=== PATIENT | female | born 1940 | race Caucasian/White ===

== ENCOUNTER → 2017-10-15 10:46 | Outpatient (CLI) | payer MEDICARE, SELFPAY ==
[2017-10-15 11:38] LABS: Anion Gap 11.1 mEq/L (5-15); Blood Urea Nitrogen 14 mg/dL (7-18); Carbon Dioxide 31 mmol/L (21.0-32.0); Chloride 98 mmol/L (98-107); Creatinine,Serum 0.89 mg/dL (0.55-1.02); Estimated Glomerular Filt Rate 61 ml/min (>60); GFR (African American) 74 ML/MIN (>60); Glucose 351 mg/dL (74-106); Potassium 3.1 mmoL/L (3.5-5.1); Sodium 137 mmol/L (136-145)
[2017-10-15 12:04] LABS: Basophils # 0.1 K/mm3 (0-0.2); Basophils % 0.6 % (0.1-2.0); Eosinophils # 0.1 K/mm3 (0.0-0.4); Eosinophils % 1.6 % (0.1-12.0); Hemoglobin 13.3 g/dL (12.2-16.2); Lymphocytes # 1.2 K/mm3 (0.7-4.5); Mean Corpuscular HGB Conc 32.6 g/dL (31.8-35.4); Mean Corpuscular Hemoglobin 30.1 pg (27.0-31.2); Mean Corpuscular Volume 92.3 fl (81-99); Mean Platelet Volume 9.9 fl (7.4-10.4); Monocytes # 0.6 K/mm3 (0.1-1.0); Monocytes % 6.2 % (1.7-9.3); Neutrophils % 78.6 % (37.0-80.0); Platelet Count 137 K/mm3 (142-424); Red Blood Count 4.44 M/mm3 (4.20-5.40); Red Cell Distribution Width 12.9 % (11.5-17.5); White Blood Count 8.9 K/mm3 (4.8-10.8)
== END ==
PROVIDERS: PCP Internal Medicine; Visit Provider Physician Assistant
DX: R53.83 Other fatigue (principal); I11.9 Hypertensive heart disease without heart failure; K92.1 Melena; I45.10 Unspecified right bundle-branch block; I25.10 Atherosclerotic heart disease of native coronary artery without angina pectoris; I48.91 Unspecified atrial fibrillation; E78.4 Other hyperlipidemia; I65.29 Occlusion and stenosis of unspecified carotid artery
CPT/HCPCS: 36415; 80048; 85025

== ENCOUNTER 2017-11-09 21:26 | Emergency (ER) | payer MEDICARE, SELFPAY ==
[2017-11-09 21:50] VITALS: BP 120/89; PULSE 59; RESP 18; TEMP 36.6; O2SAT 96; BMI 32.5
--- NOTE | 2017-11-09 22:02 | XR_ITS ---
XR shoulder LT min 2V Ordering Physician: Cayetano Zheng MD Patient Age: 77 years: Female HISTORY: ITS.REASON: FALL pain left shoulder TECHNIQUE: 3 view left shoulder . AP lateral Y view COMPARISON :01/09/2016 FINDINGS Impacted fracture of the left humeral head on mainly involving the anatomical neck with evident. Superior displacement of the distal fracture fragment There is underlying probable chondrocalcinosis or calcific tendinitis density above the humeral head. Patient may benefit from a CT to exclude any additional small fragments accounting for this vague density about humeral head. AC joint arthropathy with some mild hypertrophy. Stable to prior study The glenoid is intact. These mineralization. Apices left lung clear. IMPRESSION======= 1. Impacted left humeral head fracture . Fracture through the anatomical neck humerus with Mild displacement
--- NOTE | 2017-11-09 22:02 | XR_ITS ---
XR humerus LT COMPARISON: Left shoulder 01/09/2016 HISTORY: Left shoulder pain after a fall TECHNIQUE: 3 views left shoulder FINDINGS: There is a fracture through the neck of the humerus likely the surgical neck with slight varus angulation at the fracture site. There is mild sclerosis along the fracture line suggesting this fracture could be semiacute. There is mild cortical irregularity of the tibial tubercle probably from previous injury. There is mild narrowing of the AC joint with a small bone fragment with smooth borders at the superior aspect of the joint. IMPRESSION: Fracture left humeral neck with mild varus angulation, mild degenerative and/or posttraumatic change of the AC joint. I question whether this injury is acute versus semiacute and suggest clinical correlation for presence or absence of recent injury
--- NOTE | 2017-11-09 22:02 | HMH.EDUPEXT ---
ED Disposition Clinical Impression: Proximal humerus fracture Qualifiers: Encounter type: initial encounter Fracture type: closed Fracture morphology: other fracture Fracture alignment: nondisplaced Laterality: left Qualified Code(s): S42.295A - Other nondisplaced fracture of upper end of left humerus, initial encounter for closed fracture Disposition: Home, Self-Care Condition on Discharge: Good Instructions: DI for Shoulder Fracture Additional Instructions: Please keep your left upper extremity immobilized in a sling, apply ice packs to the left shoulder area, take Tylenol every 4-6 hours as needed for pain, follow-up with Dr. King Davis within the next 2-3 days, in the office. Referrals: King Davis [Referring] - Time of Disposition: 22:44 - Critical Care Critical Care Time: No Attestation: On 11/09/17, the high probability of a clinically significant, sudden or life threatening deterioration of the following system(s) required my full and direct attention, intervention and personal management. The time I documented below is in addition to time spent performing reported procedures but includes the following listed in this critical care notation. Medical Decision Making - Medical Records Medical records reviewed: Yes: I reviewed the patient's medical records. - Basim Inquiry Pt receiving controlled substance: No Vital Signs: 11/09/17 21:50 11/09/17 23:09 Temperature 98 F 98.6 F Temperature Source Oral Oral Pulse Rate 98 H Pulse Rate [Right Radial] 59 L Respiratory Rate 18 16 Blood Pressure 138/65 Blood Pressure [Right Arm] 120/89 Blood Pressure Mean [Right Arm] 99 Blood Pressure Source Automatic Cuff Blood Pressure Position Sitting 02 Sat by Pulse Oximetry 96 Oxygen Delivery Method Room Air Room Air Orders (Tests/Meds): ORDERS Category Date Time Status Humerus XR left [XR humerus LT] Stat Exams 11/09/17 22:02 Taken XR shoulder LT min 2V Stat Exams 11/09/17 22:02 Taken - Radiology Data #1 Image(s): Shoulder (left) Image Reviewed: Yes I reviewed the patient's radiology results, Yes I reviewed the patient's radiology image, Yes I have reviewed radiologist's interpretation left proximal shoulder fracture Upper Extremity HPI - General Chief Complaint: Extremity Injury, Upper Stated Complaint: AO [id number] @1930 fell and injured L arm Time Seen by Provider: 11/09/17 21:30 Mode of Arrival: Family Vehicle Limitations: No Limitations Description of Symptoms (Recalled from ER Triage Doc. by RN): PT STATES SHE FELL OUTSIDE AROUND 1900 ON THE GROUND AND INJURED LEFT SHOULDER. - History of Present Illness MD complaint: injury to: left, shoulder Onset (ago): hour(s) (1) Other Extremity Injury: Left: shoulder Other injuries: none Handedness: right Place: home Severity: moderate Severity scale (1-10): 8 Relieving factors: none Exacerbating factors: movement of extremity Context: fall Associated symptoms: denies other symptoms Treatments prior to arrival: cold therapy - Related Data Home Medications Medication Instructions Recorded Confirmed budesonide-formoterol HFA 80 2 puff INHALATION BID PRN 10/13/17 11/09/17 mcg-4.5 mcg/actuation aerosol inhaler hydrochlorothiazide 25 mg tablet 25 mg PO QAM 10/13/17 11/09/17 losartan 100 mg tablet 100 mg PO DAILY tab 10/13/17 11/09/17 metoprolol tartrate 50 mg tablet 50 mg PO BID 10/13/17 11/09/17 paroxetine 20 mg tablet 20 mg PO QAM 10/13/17 11/09/17 potassium chloride ER 10 mEq 20 meq PO DAILY tab 10/13/17 11/09/17 tablet,extended release(part/cryst) Allergies Allergy/AdvReac Type Severity Reaction Status Date / Time Sulfa (Sulfonamide Allergy Mild Verified 11/09/17 21:57 Antibiotics) [facility] History I have reviewed the patient's past medical history: Yes Medical History: Reports:: Atrial Fibrillation, Cancer, Coronary Artery Disease, Hyperlipidemia, Hypertension Denies:: Diabetes Mellitus Type 1, Di
[2017-11-09 23:09] VITALS: BP 138/65; PULSE 98; RESP 16; TEMP 37; O2SAT 99
== END 2017-11-09 23:13 | disposition home or self-care (01) ==
PROVIDERS: Emergency Provider Emergency Medicine; PCP Internal Medicine
DX: S42.295A Other nondisplaced fracture of upper end of left humerus, initial encounter for closed fracture (principal); I48.2 Chronic atrial fibrillation; I25.10 Atherosclerotic heart disease of native coronary artery without angina pectoris; E78.5 Hyperlipidemia, unspecified; I10 Essential (primary) hypertension; W01.0XXA Fall on same level from slipping, tripping and stumbling without subsequent striking against object, initial encounter; Y92.019 Unspecified place in single-family (private) house as the place of occurrence of the external cause; Z95.5 Presence of coronary angioplasty implant and graft; Z96.652 Presence of left artificial knee joint
CPT/HCPCS: 73030; 73060; 99283

== ENCOUNTER → 2018-01-14 07:44 | Outpatient (CLI) | payer MEDICARE, SELFPAY ==
--- NOTE | 2018-01-14 07:46 | US_ITS ---
US abdomen limited History:Elevated liver enzymes, prior cholecystectomy Ordering Physician:Julian Munoz Patient Age: 77 years Comparison:11/28/2015 Findings: Pancreas:Unremarkable. No obvious mass or abnormal fluid collection. No ductal dilatation Liver:Liver has a somewhat coarse echogenicity with some minimal irregularity of the margin of the liver. This may be seen with developing cirrhosis. Please correlate clinically. There is appropriate directional blood flow within the portal vein does not appear enlarged Right Kidney:Unremarkable. Normal size and echogenicity. No hydronephrosis Gallbladder: Prior cholecystectomy. Common bile duct is somewhat prominent at 11 mm. No intrahepatic biliary ductal dilatation is evident. IMPRESSION: 1. Prior cholecystectomy. Common bile duct is prominent at 11 mm. MRCP may be of further value to exclude a distal obstructing lesion. The biliary ductal prominence may very well be related to physiologic changes from the prior cholecystectomy 2. Coarse echogenic appearance of the liver with some irregularity of the surface of the liver. This may be seen with developing cirrhosis.
== END ==
PROVIDERS: PCP Internal Medicine; Visit Provider Internal Medicine
DX: R94.5 Abnormal results of liver function studies (principal)
CPT/HCPCS: 76705

== ENCOUNTER → 2018-01-22 10:35 | Outpatient (CLI) | payer MEDICARE, SELFPAY ==
--- NOTE | 2018-01-22 10:41 | MR_ITS ---
MR abdomen wo con, MR 3-d myelogram/MRCP HISTORY: ITS.REASON: RUQ PAIN, EVALUATE OBSTRUCTING LESION LIVER/BILE DUCT, dilated biliary tree seen on recent ultrasound ORDERING PHYSICIAN: Julian Munoz PATIENT AGE: 77 years Comparison: None TECHNIQUE: Standard abdomen multiplanar multiecho sequences are performed without contrast. 3-D MRCP images also performed FINDINGS: There is mild splenomegaly at 15 cm. No focal liver lesions evident. The pancreas, adrenal glands, and kidneys have an unremarkable appearance. There is mild prominence of the intra hepatic biliary radicals. Involvement is also dilated. Common bile duct measures up to 12 mm in transverse dimension. The common bile duct however tapers distally. No internal filling defects or strictures are evident. The cystic duct is fairly prominent measuring up to 9 mm in diameter and 2.5 cm in length. No evidence of retained stone within the cystic duct. The pancreatic duct is normal in caliber. IMPRESSION: 1. Dilated common bile duct measuring 12 mm. No filling defects that would indicate a common duct stone. No strictures. Dilated common bile duct may be physiologic response to the previous cholecystectomy 2. Prominent cystic duct remnant. 3. Unremarkable pancreatic duct 4. Splenomegaly
== END ==
PROVIDERS: PCP Internal Medicine; Visit Provider Internal Medicine
DX: R10.11 Right upper quadrant pain (principal)
CPT/HCPCS: 74181; 76376

== ENCOUNTER 2018-01-27 15:00 | Outpatient (RCR) | payer MEDICARE, SELFPAY | END 2018-01-27 15:01 | disposition home or self-care (01) | LOC: PT 15:00 | PROVIDERS: PCP Internal Medicine; Referring Provider Physician Assistant Surgical | DX: S42.202A Unspecified fracture of upper end of left humerus, initial encounter for closed fracture (principal) | CPT/HCPCS: 97010; 97014; 97110; 97140; 97163; G0283 ==

== ENCOUNTER → 2018-04-20 15:37 | Outpatient (POV) | payer MEDICARE, SELFPAY | PROVIDERS: Visit Provider Nurse Practitioner Acute Care | DX: Z00.00 Encounter for general adult medical examination without abnormal findings (principal) ==

== ENCOUNTER → 2018-09-08 11:24 | Outpatient (CLI) | payer MEDICARE, SELFPAY ==
--- NOTE | 2018-09-08 11:32 | XR_ITS ---
XR knee RT 4V HISTORY: ITS.REASON: RT KNEE DJD,PAIN, STIFFNESS ORDERING PHYSICIAN: Julian Munoz PATIENT AGE: 78 years COMPARISON: 07/03/2010 FINDINGS: Weight bearing views are obtained. There is mild tricompartmental osteoarthritis most pronounced at the medial compartment with osteophytes and chondrocalcinosis of the medial and lateral menisci. No fracture or dislocation. No lytic or blastic change. IMPRESSION: Osteoarthritis which has progressed compared to 07/03/2010
== END ==
PROVIDERS: PCP Internal Medicine; Visit Provider Internal Medicine
DX: M25.561 Pain in right knee (principal); M25.661 Stiffness of right knee, not elsewhere classified
CPT/HCPCS: 73564

== ENCOUNTER → 2018-12-08 10:26 | Outpatient (POV) | payer MEDICARE, SELFPAY | PROVIDERS: Visit Provider Dermatology | DX: Z00.00 Encounter for general adult medical examination without abnormal findings (principal) ==

== ENCOUNTER → 2019-05-10 08:27 | Outpatient (CLI) | payer MEDICARE, SELFPAY ==
--- NOTE | 2019-05-10 08:29 | US_ITS ---
PROCEDURE: US ABDOMEN COMPLETE CLINICAL INDICATION: ASCITES, CIRRHOSIS COMPARISON: [facility] US abdomen limited from 01/14/2018 FINDINGS: PANCREAS: Unremarkable. No obvious mass or abnormal fluid collection. No ductal dilatation LIVER: Liver is of moderate increased echogenicity with lobular contour consistent with cirrhosis. There is no definite ultrasound evidence of a focal liver lesion. Common bile duct is 1.3 centimeters however there is no intrahepatic biliary dilatation. RIGHT KIDNEY: Unremarkable. Normal size and echogenicity. No hydronephrosis LEFT KIDNEY: Unremarkable. Normal size and echogenicity. No hydronephrosis GALLBLADDER: Removed AORTA: There is no dilatation. There are some echogenic wall plaques. Visualized portions of the IVC appear normal. SPLEEN: Splenic length is 15 centimeters. ASCITES: Moderate IMPRESSION: Evidence of moderate ascites. Hepatic cirrhosis. Prominent common bile duct likely related to cholecystectomy and patient age. Splenomegaly. Dictated by: Wagner Bo 05/10/2019 10:56 Electronically signed by Wagner Bo in [place] 05/10/2019 10:56
== END ==
PROVIDERS: PCP Internal Medicine; Visit Provider Internal Medicine Gastroenterology
DX: R18.8 Other ascites (principal); K74.60 Unspecified cirrhosis of liver
CPT/HCPCS: 76700

== ENCOUNTER 2019-05-19 19:40 | Observation (INO) ==
--- NOTE | 2019-05-19 20:24 | Emergency Department Note ---
ED Disposition Clinical Impression: Portal hypertension, Renal insufficiency, Falls frequently, Weakness Cirrhosis Qualifiers: Hepatic cirrhosis type: other cirrhosis Qualified Code(s): K74.69 - Other cirrhosis of liver Atrial fibrillation Qualifiers: Atrial fibrillation type: unspecified chronic Qualified Code(s): I48.20 - Chronic atrial fibrillation, unspecified Ascites Qualifiers: Ascites type: other type Qualified Code(s): R18.8 - Other ascites Disposition: Admitted as Observation Condition on Discharge: Fair - Critical Care Critical Care Time: No Attestation: On 05/19/19, the high probability of a clinically significant, sudden or life threatening deterioration of the following system(s) required my full and direct attention, intervention and personal management. The time I documented below is in addition to time spent performing reported procedures but includes the following listed in this critical care notation. Medical Decision Making - Medical Records Medical records reviewed: Yes: I reviewed the patient's medical records. - Basim Inquiry Pt receiving controlled substance: No Vital Signs: 05/19/19 20:01 Temperature 98.0 F Temperature Source Oral Pulse Rate [Left Radial] 87 Respiratory Rate 17 Blood Pressure [Right Arm] 132/65 Blood Pressure Mean [Right Arm] 87 Blood Pressure Source [Right Arm] Automatic Cuff Blood Pressure Position [Right Arm] Supine 02 Sat by Pulse Oximetry 100 Oxygen Delivery Method Room Air - Lab Data Lab results reviewed: Yes: I reviewed the patient's lab results. Lab Results 05/19/19 20:05: WBC 8.4, RBC 4.90, Hgb 13.4, Hct 44.4, MCV 90.5, MCH 27.4, MCHC 30.3 L, RDW 17.9 H, Plt Count 312, MPV 8.2, Neut % (Auto) 81.8 H, Lymph % (Auto) 10.8, [place] % (Auto) 6.5, Eos % (Auto) 0.4, Baso % (Auto) 0.5, Neut # (Auto) 6.9, Lymph # (Auto) 0.9, [place] # (Auto) 0.6, Eos # (Auto) 0.0, Baso # (Auto) 0.0, ESR 42 H 05/19/19 20:05: Sodium 132 L, Potassium 3.3 L, Chloride 89 L, Carbon Dioxide 27, Anion Gap 19.3 H, BUN 15, Creatinine 1.36 H, Estimated Creat Clear 37, Estimated GFR 37 L, Est GFR ( Amer) 45 L, Glucose 154 H, Calcium 9.2, Troponin I < 0.02, C-Reactive Protein 5.1 H 05/19/19 20:05: Total Bilirubin 2.0 H, Direct Bilirubin 0.8 H, Indirect Bilirubin 1.2 H, AST 31, ALT 14, Alkaline Phosphatase 175 H, Total Protein 8.5 H , Albumin 3.6 05/19/19 20:05: PT 12.1 H, INR 1.17 H 05/19/19 21:40: Ammonia < 10 L Result diagrams: 05/19/19 20:05 05/19/19 20:05 Orders (Tests/Meds): ORDERS Category Date Time Status CT abdomen pelvis wo con Stat Cat Scan 05/19/19 20:[address] head/brain wo con Stat Cat Scan 05/19/19 20:20 Taken Knee XR left 3 views [XR knee LT 3V] Stat Exams 05/19/19 20:25 Taken XR chest AP Stat Exams 05/19/19 20:20 Taken XR pelvis 1-2V Routine Exams 05/19/19 Taken Urinalysis and Microscopic Stat Lab 05/19/19 22:50 Received - Radiology Data #1 Image(s): Chest, Pelvis, Knee Image Reviewed: Yes I reviewed the patient's radiology image Preliminary Findings: No Fracture Seen - CT Data CT Scan: Head, Abdomen, Pelvis Time Received: 21:[address] Reviewed: Yes: I have viewed the radiologist's interpretation Preliminary Findings: Abnormal (see reports) - ECG Data Tracing #1 Arrhythmias present: afib Ischemic changes: non-specific ST-T wave changes Weakness HPI - General Stated complaint: Weight loss/No Appetite/Fall AO 05/19 17:00/ Time Seen by Provider: 05/19/19 20:15 Mode of Arrival: Wheelchair Source of Information: Patient, Relative, Medical Record Limitations: Physical Limitations Description of Symptoms (Recalled from ER Triage Doc. by RN): pt stated she had a colonoscopy over the summer that resulted in "fluid build up on her stomach." pt stated since her procedure she has been weak, lethargic, lose of appetite with about a 30lb weight loss. pt stated she had increased weakness today and has started to vomit when she eats. pt fell twice today. both falls were whitnessed. pt fell back on her bottom while trying to get into the vehicle and fell into the door when trying to walk into the house. pt stated she hit her head on the door but denies LOC. - History of Present Illness HPI Narrative: pt with hx of cirrhosis and ascites and has seen gi- she has over the last few days more weakness and dec po intake with n/v - no fever and reported a couple of falls sec to weakness over the last few days MD Complaint: generalized weakness Onset (ago): day(s) Duration: constant Severity: moderate Associated symptoms: denies other symptoms - Related Data Home Medications Medication Instructions Recorded Confirmed budesonide-formoterol HFA 80 2 puff INHALATION BID PRN 10/13/17 11/09/17 mcg-4.5 mcg/actuation aerosol inhaler hydrochlorothiazide 25 mg tablet 25 mg PO QAM 10/13/17 11/09/17 losartan 100 mg tablet 100 mg PO DAILY tab 10/13/17 11/09/17 paroxetine 20 mg tablet 20 mg PO QAM 10/13/17 11/09/17 potassium chloride ER 10 mEq 20 meq PO DAILY tab 10/13/17 11/09/17 tablet,extended release(part/cryst) cholecalciferol (vitamin D3) 1,000 1,000 unit PO DAILY cap 02/18/18 unit capsule multivitamin tablet 1 tab PO QAM 02/18/18 vitamin B complex tablet 1 tab PO DAILY tab 02/18/18 Previous Rx's Medication Instructions Recorded sotalol 80 mg tablet 80 mg PO Q12H #60 tab 02/18/18 Allergies Allergy/AdvReac Type Severity Reaction Status Date / Time Sulfa (Sulfonamide Allergy Mild Verified 11/09/17 21:57 Antibiotics) [facility] History - Hepatitis A Screen Drug use history?: No High risk sexual behaviors?: No History of sexually transmitted infection?: No Currently employed?: No Childcare worker?: No Do you have indoor plumbing?: Yes Do you have electricity?: Yes Attestation statement:: This patient has been screened for Hepatitis A risk factors. I have reviewed the patient's past medical history: Yes Medical History: Reports:: Atrial Fibrillation, Cancer, Coronary Artery Disease, Hyperlipidemia, Hypertension Denies:: Diabetes Mellitus Type 1, Diabetes Mellitus Type 2, MRSA Laterality Cases: Left: Lumpectomy, Mastectomy Other Surgeries: Yes: CABG, Cardiac Surgery Amputation: No Fractures: Yes (RIGHT FEMUR WITH PLATE) - Social History Smoking Status: Never smoker Alcohol Intake: never Alcohol Intake Frequency:: other Substance Use Type: denies use Occupational Status: retired Family Hx:: Coronary Artery Disease, Heart Attack ROS Obtained: Yes All systems reviewed & no additional complaints - Constitutional Constitutional: Denies fever(s) - Eyes Eyes: Denies change in vision - ENT Ears, Nose, Mouth, and Throat: Denies sore throat - Cardiovascular Cardiovascular: Denies chest pain - Respiratory Respiratory: No cough - Gastrointestinal Gastrointestingal: Reports: as per HPI, abdominal pain, nausea, vomiting - Genitourinary Female Genitourinary: Denies hematuria - Musculoskeletal Musculoskeletal: Denies joint pain, Denies joint swelling - Integumentary/Breasts Skin/Breast: Denies rash - Neurologic Neurologic: Reports as per HPI, Denies abnormal speech, Denies dizziness, Denies focal weakness, Reports frequent falls, Denies seizure-like activity Physical Exam - General General appearance: alert, in no apparent distress - Head Head exam: normocephalic - Eye Eye exam: Present: PERRL, EOMI. Absent: scleral icterus, nystagmus - ENT ENT exam: Present: mucous membranes dry - Neck Neck exam: Present: trachea midline - Respiratory Respiratory exam: Present: normal lung sounds bilaterally. Absent: respiratory distress - Cardiovascular Cardiovascular exam: Present: irregular rhythm, systolic murmur, +S4 - Abdominal Exam Abdominal exam: Present: soft, tenderness, diminished bowel sounds, other (distended ) Abdominal tenderness: Present: RUQ, moderate - Extremities Exam Extremities exam: Present: full ROM. Absent: calf tenderness - Neurological Exam Neurological exam: Present: alert, oriented X3, CN II-XII intact, other. Absent: motor sensory deficit - Psychiatric Psychiatric exam: Present: normal affect - Skin Skin exam: Absent: rash
[2019-05-19 20:34] LABS: Basophils % 0.5 % (0.1-2.0); Eosinophils % 0.4 % (0.1-12.0); Hematocrit 44.4 % (37.0-47.0); Hemoglobin 13.4 g/dL (12.2-16.2); Lymphocytes # 0.9 K/mm3 (0.7-4.5); Lymphocytes % 10.8 % (10-50); Mean Corpuscular HGB Conc 30.3 g/dL (31.8-35.4); Mean Corpuscular Volume 90.5 fl (81-99); Mean Platelet Volume 8.2 fl (7.4-10.4); Monocytes # 0.6 K/mm3 (0.1-1.0); Monocytes % 6.5 % (1.7-9.3); Neutrophils # 6.9 K/mm3 (1.8-7.8); Neutrophils % 81.8 % (37.0-80.0); Platelet Count 312 K/mm3 (142-424); Red Cell Distribution Width 17.9 % (11.5-17.5); White Blood Count 8.4 K/mm3 (4.8-10.8)
[2019-05-19 20:35] LABS: INR 1.17 (0.9-1.1); Prothrombin Time 12.1 seconds (9.4-11.8)
[2019-05-19 20:43] LABS: Anion Gap 19.3 mEq/L (5-15); Blood Urea Nitrogen 15 mg/dL (7-18); C-Reactive Protein 5.1 mg/dL (0.0-0.9); Calcium 9.2 mg/dL (8.5-10.1); Carbon Dioxide 27 mmol/L (21.0-32.0); Chloride 89 mmol/L (98-107); Glucose 154 mg/dL (74-106); Sodium 132 mmol/L (136-145)
[2019-05-19 20:50] LABS: Albumin Level 3.6 gm/dL (3.4-5.0); Bilirubin,Direct 0.8 mg/dL (0.0-0.2); Bilirubin,Indirect 1.2 mg/dL (0.0-0.9); Total Protein,Serum 8.5 gm/dL (6.4-8.2)
[2019-05-19 21:19] LABS: Erythrocyte Sedimentation Rate 42 mm/hr (0-30)
[2019-05-19 22:55] LABS: Microscopic, Urine URINE MICROSCOPIC (MICROSCOPIC)
[2019-05-19 22:58] LABS: Appearance,Urine CLEAR (Clear); Blood, Urine 2+ (Negative); Color,Urine YELLOW (Yellow); Glucose,Urine (UA) Negative (Negative); Ketones,Urine Negative (Negative); Leukocyte Esterase,Urine Negative (Negative); PH,Urine 5.5 (5.0-8.5); Protein,Urine TRACE (Negative); Specific Gravity, Urine >= 1.030 (1.005-1.030)
[2019-05-19 23:13] LABS: Bilirubin,Urine Negative (Negative)
[2019-05-19 23:14] LABS: Bacteria,Urine Trace /lpf
[2019-05-20 05:56] LABS: Basophils % 0.3 % (0.1-2.0); Eosinophils % 0.6 % (0.1-12.0); Lymphocytes # 0.9 K/mm3 (0.7-4.5); Mean Corpuscular HGB Conc 30.8 g/dL (31.8-35.4); Mean Corpuscular Volume 89.3 fl (81-99); Mean Platelet Volume 8.7 fl (7.4-10.4); Monocytes # 0.6 K/mm3 (0.1-1.0); Monocytes % 9.1 % (1.7-9.3); Neutrophils # 4.5 K/mm3 (1.8-7.8); Neutrophils % 74.9 % (37.0-80.0); Platelet Count 209 K/mm3 (142-424); Red Cell Distribution Width 17.9 % (11.5-17.5)
[2019-05-20 06:01] LABS: Calcium 8.3 mg/dL (8.5-10.1)
[2019-05-20 06:03] LABS: Hemoglobin 10.1 g/dL (12.2-16.2)
--- NOTE | 2019-05-20 08:15 | Pharmacy Consult Notes ---
[facility] Pharmacy VTE Monitoring - Patient Demographics Admission date: 05/20/19 Report Date: 05/20/19 Time: 08:15 Allergies/Adverse Reactions: Patient Allergies Sulfa (Sulfonamide Antibiotics) Allergy (Mild, Verified 11/09/17 21:57) Height: 1.63 m Weight: 66.877 kg Patient Problems: Current Active Problems Cirrhosis (Acute) Portal hypertension (Acute) Ascites (Acute) Renal insufficiency (Acute) Falls frequently (Acute) Weakness (Acute) Atrial fibrillation (Acute) - VTE Risk Labs: VTE Related Lab Results Hgb 10.1 g/dL (12.2-16.2) L D 05/20/19 05:40 Hct 33.0 % (37.0-47.0) L 05/20/19 05:40 Plt Count 209 K/mm3 (142-424) D 05/20/19 05:40 PT 12.1 seconds (9.4-11.8) H 05/19/19 20:05 INR 1.17 (0.9-1.1) H 05/19/19 20:05 BUN 14 mg/dL (7-18) 05/20/19 05:40 Creatinine 1.08 mg/dL (0.55-1.02) H D 05/20/19 05:40 Estimated Creat Clear 44 mL/min (50-200) 05/20/19 05:40 Was VTE Risk Assessment Performed: Yes VTE Risk Level: Moderate Risk Clinical Trial Participant: No - Prophylaxis VTE Prophylaxis Ordered?: Yes Types of VTE Prophylaxis: TEDS Knee High
--- NOTE | 2019-05-20 10:23 | History & Physical Report ---
*Admission Date: 05/20/19 *Chief complaint: abdominal distension, falls *History of present illness: Ms. Blue is an 78-year-old female who presented to the ER yesterday due to worsening fatigue and abdominal distention. She states she developed abdominal distention proximally 3 months ago after colonoscopy. Has a known history of cirrhosis but has never had previous ascites or abdominal paracenteses. Denies previous distention prior to colonoscopy interestingly. Has been having poor p.o. intake and feeling more fatigued. Denies any fevers, nausea vomiting, diarrhea. Is not on any goal-directed therapy for her cirrhosis or liver failure. Meld on admission is a 15 [facility] History Medical History: Reports:: Atrial Fibrillation, Cancer (breast), Coronary Artery Disease, Hyperlipidemia, Hypertension Denies:: Diabetes Mellitus Type 1, Diabetes Mellitus Type 2, MRSA *Have you ever received a pneumonia vaccine?: No *Have you received a flu vaccine this season?: No Other Medical History: Reports: Anemia, Arthritis, Radiation Therapy Laterality Cases: Left: Lumpectomy, Mastectomy Other Surgeries: Yes: CABG, Cancer Surgery (mastectomy), Cardiac Catheterization, Cardiac Surgery, Cholecystectomy, Colonoscopy Amputation: No Fractures: Yes (RIGHT FEMUR WITH PLATE) - *Social History Educational Level: Completed High School Smoking Status: Never smoker Alcohol Intake: never Alcohol Intake Frequency:: other Substance Use Type: denies use *Occupational Status:: retired *Travel in the last 8 weeks: None Family Hx:: Asthma, Cancer, Coronary Artery Disease, Heart Attack, Hypertension, Kidney Disease Review of Systems - Review of Systems Review of systems:: pertinent systems reviewed and negative unless documented below - *Neurologic Reports frequent falls, Denies abnormal speech, Denies dizziness, Denies localized weakness, Denies seizure-like activity Meds Home Medications Medication Instructions Recorded Confirmed Type paroxetine 20 mg tablet 20 mg PO QAM 10/13/17 05/20/19 History cholecalciferol (vitamin D3) 1,000 1,000 unit PO DAILY cap 02/18/18 05/20/19 History unit capsule multivitamin tablet 1 tab PO QAM 02/18/18 05/20/19 History vitamin B complex tablet 1 tab PO DAILY tab 02/18/18 05/20/19 History Atenolol [Atenolol 50mg Tab] 50 mg PO DAILY 05/20/19 05/20/19 History Budesonide/Formoterol Fumarate 1 puffs INHALATION BID 05/20/19 05/20/19 History [Symbicort 160-4.5 Mcg Inhaler] Colesevelam HCl [Welchol] 625 mg PO BID 05/20/19 05/20/19 History Furosemide [Furosemide 20mg Tab] 20 mg PO DAILY 05/20/19 05/20/19 History Levothyroxine Sodium 100 mg PO DAILY 05/20/19 05/20/19 History [Levothyroxine 100mcg (0.1MG) Tab] Spironolactone 100 mg PO DAILY 05/20/19 05/20/19 History dilTIAZem HCl [Cartia Xt] 300 mg PO DAILY 05/20/19 05/20/19 History Allergies Allergy/AdvReac Type Severity Reaction Status Date / Time Sulfa (Sulfonamide Allergy Mild Verified 11/09/17 21:57 Antibiotics) Exam Vital signs and Labs for Last 24 Hours: Temp Pulse Resp BP Pulse Ox 97.8 F 88 18 137/64 95 05/20/19 08:00 05/20/19 08:00 05/20/19 08:00 05/20/19 08:00 05/20/19 08:00 Laboratory Results - last 24 hr 05/19/19 20:05: WBC 8.4, RBC 4.90, Hgb 13.4, Hct 44.4, MCV 90.5, MCH 27.4, MCHC 30.3 L, RDW 17.9 H, Plt Count 312, MPV 8.2, Neut % (Auto) 81.8 H, Lymph % (Auto) 10.8, Owen % (Auto) 6.5, Eos % (Auto) 0.4, Baso % (Auto) 0.5, Neut # (Auto) 6.9, Lymph # (Auto) 0.9, Owen # (Auto) 0.6, Eos # (Auto) 0.0, Baso # (Auto) 0.0, ESR 42 H 05/19/19 20:05: Sodium 132 L, Potassium 3.3 L, Chloride 89 L, Carbon Dioxide 27, Anion Gap 19.3 H, BUN 15, Creatinine 1.36 H, Estimated Creat Clear 37, Estimated GFR 37 L, Est GFR ( Amer) 45 L, Glucose 154 H, Calcium 9.2, Troponin I < 0.02, C-Reactive Protein 5.1 H 05/19/19 20:05: Total Bilirubin 2.0 H, Direct Bilirubin 0.8 H, Indirect Bilirubin 1.2 H, AST 31, ALT 14, Alkaline Phosphatase 175 H, Total Protein 8.5 H , Albumin 3.6 05/19/19 20:05: PT 12.1 H, INR 1.17 H 05/19/19 21:40: Ammonia < 10 L 05/19/19 22:50: Urine Color Yellow, Urine Appearance Clear, Urine pH 5.5, Ur Specific [place] >= 1.030, Urine Protein Trace, Urine Glucose (UA) Negative, Urine Ketones Negative, Urine Blood 2+, Urine Nitrate Negative, Urine Bilirubin Negative, Urine Urobilinogen 1.0, Ur Leukocyte Esterase Negative, Urine WBC 3-5, Ur Squamous Epith Cells 3-5, Urine Bacteria Trace 05/20/19 02:00: Troponin I < 0.02 05/20/19 05:40: Troponin I < 0.02 05/20/19 05:40: WBC 6.0 D, RBC 3.70 L, Hgb 10.1 L D, Hct 33.0 L, MCV 89.3, MCH 27.5, MCHC 30.8 L, RDW 17.9 H, Plt Count 209 D, MPV 8.7, Neut % (Auto) 74.9, Lymph % (Auto) 15.0, Owen % (Auto) 9.1, Eos % (Auto) 0.6, Baso % (Auto) 0.3, Neut # (Auto) 4.5, Lymph # (Auto) 0.9, Owen # (Auto) 0.6, Eos # (Auto) 0.0, Baso # (Auto) 0.0 05/20/19 05:40: Sodium 134 L, Potassium 3.0 L, Chloride 96 L, Carbon Dioxide 29, Anion Gap 12.0, BUN 14, Creatinine 1.08 H D, Estimated Creat Clear 44, Estimated GFR 49 L, Est GFR ( Amer) 59 D, Glucose 96 D, Calcium 8.3 L I & O for Last 24 hours: Intake & Output 05/17/19 05/18/19 05/19/19 05/20/19 23:59 23:59 23:59 23:59 Intake Total 718 / 718 Balance / 718 Weight 71.214 kg 66.877 kg - *Routine HEENT Exam Head: Present: normocephalic Eye: Present: EOMI, PERRL ENT: Present: mucous membranes moist - *Routine Neck Exam Present: supple. Absent: lymphadenopathy - Routine Chest/Breast/Axilla Exam Comments: Right-sided post mastectomy changes - *Routine Respiratory Exam Present: CTA bilaterally - *Routine Cardiovascular Exam Present: RRR - *Routine Abdominal Exam Present: soft, normoactive bowel sounds, distended. Absent: tenderness Comments: ascites, dull to percussion - *Routine Extremities Exam Absent: cyanosis, clubbing, edema - *Routine Skin Exam Present: warm. Absent: rash - *Routine Neurological Exam Present: alert, oriented X3 Assessment and Plan (1) Ascites Current visit: Yes Status: Acute Qualifiers: Ascites type: other type Qualified Code(s): R18.8 - Other ascites Category: Medical Code(s): R18.8 - Other ascites Secondary to cirrhosis. Will perform large-volume paracentesis with albumin administered after larger than 5 L. Fluid studies on ascites fluid. We will also pursue right upper quadrant ultrasound of liver to assess for possible portal vein thrombosis as underlying cause for portal hypertension and worsening ascites over the past 3 months. If concerning for peritonitis, will initiate broad-spectrum antibiotics upon that time after obtaining fluid and cell counts (2) Atrial fibrillation Current visit: Yes Status: Chronic Qualifiers: Atrial fibrillation type: unspecified chronic Qualified Code(s): I48.20 - Chronic atrial fibrillation, unspecified; I48.2 - Chronic atrial fibrillation Category: Medical Code(s): I48.91 - Unspecified atrial fibrillation Continue diltiazem. (3) Cirrhosis Current visit: Yes Status: Chronic Qualifiers: Hepatic cirrhosis type: other cirrhosis Qualified Code(s): K74.69 - Other cirrhosis of liver Category: Medical Code(s): K74.60 - Unspecified cirrhosis of liver Meld of 15. Will benefit from referral to economics lecturer at time of discharge. (4) Portal hypertension Current visit: Yes Status: Acute Category: Medical Code(s): K76.6 - Portal hypertension Continue atenolol, initiate propranolol. Continue Lasix and spironolactone. (5) Renal insufficiency Current visit: Yes Status: Acute Category: Medical Code(s): N28.9 - Disorder of kidney and ureter, unspecified Monitor for improvement with paracentesis. (6) Fatigue Current visit: No Status: Chronic Qualifiers: Fatigue type: other Qualified Code(s): R53.83 - Other fatigue Category: Medical Code(s): R53.83 - Other fatigue SPECT secondary to chronic disease, cirrhosis, A. fib. Monitor for improvement with large volume paracentesis. Additionally will assess improvement with initiation of diet as patient has had poor p.o. intake for some time now due to abdominal distention. - Assessment and plan all Dx Assessment and Plan for all problems:: 78-year-old female with history of breast cancer, cirrhosis, new onset of ascites. Work-up portal hypertension and optimize cirrhosis management and tr eatment of ascites. Paracentesis performed by radiology. Fluid studies obtained. Holding on antibiotics at this time as there is no overt sign of infection. Further management pending lab results. Will need gastroenterology/hepatology follow-up at time of discharge. Continues to require inpatient management. Will monitor for kidney function improvement as well as improvement in p.o. intake. If does well over the next 24 hours, plan to discharge home with further management as outpatient.
[2019-05-20 10:36] LABS: Albumin Level 2.4 gm/dL (3.4-5.0); Albumin/Globulin Ratio 0.7 (1.1-1.8); Bilirubin,Total 1.2 mg/dL (0.2-1.0); Calcium 8.3 mg/dL (8.5-10.1); Globulin 3.5 gm/dl (1.3-3.2); Total Protein,Serum 5.9 gm/dL (6.4-8.2)
[2019-05-20 14:10] LABS: Appearance,Body Fld. Normal; Mononuclear WBCs,Body Fluid 88 %; Polynuclear WBC,Body Fluid 12 %; RBC,Body Fluid < 10 cells/uL (< 10 X 10^3); TNC,Body Fluid 291 cells/uL (< 1000)
--- NOTE | 2019-05-20 17:58 | Discharge Summary ---
General - General Admission date:: 05/20/19 Discharge date: 05/21/19 HPI HPI: Ms. Blue is an 78-year-old female who presented to the ER yesterday due to worsening fatigue and abdominal distention. She states she developed abdominal distention proximally 3 months ago after colonoscopy. Has a known history of cirrhosis but has never had previous ascites or abdominal paracenteses. Denies previous distention prior to colonoscopy interestingly. Has been having poor p.o. intake and feeling more fatigued. Denies any fevers, nausea vomiting, diarrhea. Is not on any goal-directed therapy for her cirrhosis or liver failure. Meld on admission is a 15 Hospital Course Hospital Course: Patient admitted for weakness and abdominal distention. Found to have significant ascites and cirrhosis. Paracentesis performed under ultrasound by radiology. Did not meet criteria for spontaneous bacterial peritonitis. Had improvement in distention and diet after draining ascites. Patient overall showing improvement. Still weak however ambulating independently and performing ADLs. PT eval to assess for possible DME needs or home PT. Meeting criteria for discharge home pending PT recommendations. Continue propranolol initiated for portal hypertension. Plan to follow-up with rug sample beveler after discharge and PCP Dr. Munoz. Defer further management to them. Objective Vital signs: Temp Pulse Resp BP Pulse Ox 98.3 F 85 16 118/56 L 93 L 05/20/19 16:00 05/20/19 16:20 05/20/19 16:20 05/20/19 16:20 05/20/19 16:20 Narrative: - *Routine HEENT Exam Head: Present: normocephalic Eye: Present: EOMI, PERRL, no scleral icterus ENT: Present: mucous membranes moist - *Routine Neck Exam Present: supple. Absent: lymphadenopathy - Routine Chest/Breast/Axilla Exam Comments: Right-sided post mastectomy changes - *Routine Respiratory Exam Present: CTA bilaterally - *Routine Cardiovascular Exam Present: RRR - *Routine Abdominal Exam Present: soft, normoactive bowel sounds, Absent: tenderness Comments: interval improvement in distension *Routine Extremities Exam Absent: cyanosis, clubbing, edema - *Routine Skin Exam Present: warm. Absent: rash - *Routine Neurological Exam Present: alert, oriented X3 Results Labs on day of discharge: Labs from last 24 hours 05/20/19 05/20/19 05/20/19 11:20 09:55 05:40 WBC RBC Hgb Hct MCV MCH MCHC RDW Plt Count MPV Neut % (Auto) Lymph % (Auto) [place] % (Auto) Eos % (Auto) Baso % (Auto) Neut # (Auto) Lymph # (Auto) Simpson # (Auto) Eos # (Auto) Baso # (Auto) ESR PT INR Sodium 134 L 134 L Potassium 3.0 L 3.0 L Chloride 96 L 96 L Carbon Dioxide 28 29 Anion Gap 13.0 12.0 BUN 14 14 Creatinine 1.03 H 1.08 H D Estimated Creat Clear 46 44 Estimated GFR 52 L 49 L Est GFR ( Amer) 62 59 D Glucose 85 96 D Calcium 8.3 L 8.3 L Total Bilirubin 1.2 H Direct Bilirubin Indirect Bilirubin AST 18 D ALT 6 L D Alkaline Phosphatase 116 Ammonia Lactate Dehydrogenase 193 Troponin I C-Reactive Protein Total Protein 5.9 L D Albumin 2.4 L D Globulin 3.5 H Albumin/Globulin Ratio 0.7 L Urine Color Urine Appearance Urine pH Ur Specific [place] Urine Protein Urine Glucose (UA) Urine Ketones Urine Blood Urine Nitrate Urine Bilirubin Urine Urobilinogen Ur Leukocyte Esterase Urine WBC Ur Squamous Epith Cells Urine Bacteria Fluid Source Paracentesis fluid Fluid Volume 48 Fluid Appearance Normal Fluid RBC (Auto) < 10 Fld Tot Nucleated Cell 291 Fld Polynuclear WBCs % 12 Fld Mononuclear WBCs % 88 05/20/19 05/20/19 05/20/19 05:40 05:40 02:00 WBC 6.0 D RBC 3.70 L Hgb 10.1 L D Hct 33.0 L MCV 89.3 MCH 27.5 MCHC 30.8 L RDW 17.9 H Plt Count 209 D MPV 8.7 Neut % (Auto) 74.9 Lymph % (Auto) 15.0 Simpson % (Auto) 9.1 Eos % (Auto) 0.6 Baso % (Auto) 0.3 Neut # (Auto) 4.5 Lymph # (Auto) 0.9 Simpson # (Auto) 0.6 Eos # (Auto) 0.0 Baso # (Auto) 0.0 ESR PT INR Sodium Potassium Chloride Carbon Dioxide Anion Gap BUN Creatinine Estimated Creat Clear Estimated GFR Est GFR ( Amer) Glucose Calcium Total Bilirubin Direct Bilirubin Indirect Bilirubin AST ALT Alkaline Phosphatase Ammonia Lactate Dehydrogenase Troponin I < 0.02 < 0.02 C-Reactive Protein Total Protein Albumin Globulin Albumin/Globulin Ratio Urine Color Urine Appearance Urine pH Ur Specific [place] Urine Protein Urine Glucose (UA) Urine Ketones Urine Blood Urine Nitrate Urine Bilirubin Urine Urobilinogen Ur Leukocyte Esterase Urine WBC Ur Squamous Epith Cells Urine Bacteria Fluid Source Fluid Volume Fluid Appearance Fluid RBC (Auto) Fld Tot Nucleated Cell Fld Polynuclear WBCs % Fld Mononuclear WBCs % 05/19/19 05/19/19 05/19/19 22:50 21:40 20:05 WBC RBC Hgb Hct MCV MCH MCHC RDW Plt Count MPV Neut % (Auto) Lymph % (Auto) [place] % (Auto) Eos % (Auto) Baso % (Auto) Neut # (Auto) Lymph # (Auto) Simpson # (Auto) Eos # (Auto) Baso # (Auto) ESR PT 12.1 H INR 1.17 H Sodium Potassium Chloride Carbon Dioxide Anion Gap BUN Creatinine Estimated Creat Clear Estimated GFR Est GFR ( Amer) Glucose Calcium Total Bilirubin Direct Bilirubin Indirect Bilirubin AST ALT Alkaline Phosphatase Ammonia < 10 L Lactate Dehydrogenase Troponin I C-Reactive Protein Total Protein Albumin Globulin Albumin/Globulin Ratio Urine Color Yellow Urine Appearance Clear Urine pH 5.5 Ur Specific [place] >= 1.030 Urine Protein Trace Urine Glucose (UA) Negative Urine Ketones Negative Urine Blood 2+ Urine Nitrate Negative Urine Bilirubin Negative Urine Urobilinogen 1.0 Ur Leukocyte Esterase Negative Urine WBC 3-5 Ur Squamous Epith Cells 3-5 Urine Bacteria Trace Fluid Source Fluid Volume Fluid Appearance Fluid RBC (Auto) Fld Tot Nucleated Cell Fld Polynuclear WBCs % Fld Mononuclear WBCs % 05/19/19 05/19/19 05/19/19 20:05 20:05 20:05 WBC 8.4 RBC 4.90 Hgb 13.4 Hct 44.4 MCV 90.5 MCH 27.4 MCHC 30.3 L RDW 17.9 H Plt Count 312 MPV 8.2 Neut % (Auto) 81.8 H Lymph % (Auto) 10.8 Simpson % (Auto) 6.5 Eos % (Auto) 0.4 Baso % (Auto) 0.5 Neut # (Auto) 6.9 Lymph # (Auto) 0.9 Simpson # (Auto) 0.6 Eos # (Auto) 0.0 Baso # (Auto) 0.0 ESR 42 H PT INR Sodium 132 L Potassium 3.3 L Chloride 89 L Carbon Dioxide 27 Anion Gap 19.3 H BUN 15 Creatinine 1.36 H Estimated Creat Clear 37 Estimated GFR 37 L Est GFR ( Amer) 45 L Glucose 154 H Calcium 9.2 Total Bilirubin 2.0 H Direct Bilirubin 0.8 H Indirect Bilirubin 1.2 H AST 31 ALT 14 Alkaline Phosphatase 175 H Ammonia Lactate Dehydrogenase Troponin I < 0.02 C-Reactive Protein 5.1 H Total Protein 8.5 H Albumin 3.6 Globulin Albumin/Globulin Ratio Urine Color Urine Appearance Urine pH Ur Specific [place] Urine Protein Urine Glucose (UA) Urine Ketones Urine Blood Urine Nitrate Urine Bilirubin Urine Urobilinogen Ur Leukocyte Esterase Urine WBC Ur Squamous Epith Cells Urine Bacteria Fluid Source Fluid Volume Fluid Appearance Fluid RBC (Auto) Fld Tot Nucleated Cell Fld Polynuclear WBCs % Fld Mononuclear WBCs % DS: Diagnosis - Discharge Diagnosis (1) Ascites Status: Acute Problem details: No concern for SBP as patient has no fever, abdominal pain, altered mental status (2) Atrial fibrillation Status: Chronic (3) Cirrhosis Status: Chronic (4) Portal hypertension Status: Chronic Problem details: continue Propranolol. Hold diuretics in setting of soft BPs, defer resumption to Hepatology follow-up. (5) Renal insufficiency Status: Resolved (6) Fatigue Status: Chronic Discharge Plan - Patient Discharge Instructions ACTIVITY: Continue current activity DIET: continue same diet Patient Instructions: Cirrhosis, Atrial Fibrillation, Ascites, DI for Ascites, DI for Atrial Fibrillation, DI for Cirrhosis, How to Prevent Falls, DI for Muscle Weakness, DI for Humeral Fracture, Humeral Shaft Fracture - Follow up Plan Follow up with: Kelly Carpio [Referring] - Julian Munoz [Primary Care Provider] - Disposition: Home, Self-[facility] Medications: Home Medications Medication Instructions Recorded Confirmed Type paroxetine 20 mg tablet 20 mg PO QAM 10/13/17 05/20/19 History cholecalciferol (vitamin D3) 1,000 1,000 unit PO DAILY cap 02/18/18 05/20/19 History unit capsule multivitamin tablet 1 tab PO QAM 02/18/18 05/20/19 History vitamin B complex tablet 1 tab PO DAILY tab 02/18/18 05/20/19 History Colesevelam HCl [Welchol] 625 mg PO BID 05/20/19 05/20/19 History Levothyroxine Sodium 100 mcg PO DAILY 05/20/19 05/20/19 History [Levothyroxine 100mcg (0.1MG) Tab] RX: Atenolol [Atenolol 50mg Tab] 50 mg PO DAILY 05/20/19 05/20/19 History RX: Budesonide/Formoterol Fumarate 1 puffs INHALATION BID 05/20/19 05/20/19 History [Symbicort 160-4.5 Mcg Inhaler] RX: Furosemide [Furosemide 20mg 20 mg PO DAILY 05/20/19 05/20/19 History Tab] Spironolactone 100 mg PO DAILY 05/20/19 05/20/19 History dilTIAZem HCl [Cartia Xt] 300 mg PO DAILY 05/20/19 05/20/19 History RX: Propranolol HCl [Inderal 20mg 10 mg PO Q8H 30 Days #90 tab 05/21/19 Rx tablet] Prescriptions/Medication Reconciliation: New RX: Propranolol HCl [Inderal 20mg tablet] 10 mg PO Q8H 30 Days #90 tab Continued paroxetine 20 mg tablet 20 mg PO QAM multivitamin tablet 1 tab PO QAM cholecalciferol (vitamin D3) 1,000 unit capsule 1,000 unit PO DAILY cap vitamin B complex tablet 1 tab PO DAILY tab Colesevelam HCl [Welchol] 625 mg PO BID dilTIAZem HCl [Cartia Xt] 300 mg PO DAILY RX: Budesonide/Formoterol Fumarate [Symbicort 160-4.5 Mcg Inhaler] 1 puffs INHALATION BID Levothyroxine Sodium [Levothyroxine 100mcg (0.1MG) Tab] 100 mcg PO DAILY Spironolactone 100 mg PO DAILY Discontinued RX: Furosemide [Furosemide 20mg Tab] 20 mg PO DAILY RX: Atenolol [Atenolol 50mg Tab] 50 mg PO DAILY - Problem Reconciliation Problems Reviewed?: Yes
--- NOTE | 2019-05-20 19:22 | Electrocardiograph Report ---
APPROVED REPORT Exam: Resting ECG HR:86 bpm ECG Measurements Heart Rate 86 AXES QRSd 92 QRS -11 QT 426 T-31 QTc 509 <Conclusion> Atrial fibrillation Incomplete right bundle branch block Abnormal ECG Electronically signed by : Julian Munoz 05/20/2019 19:22:23
[2019-05-21 06:19] LABS: Basophils % 0.7 % (0.1-2.0); Eosinophils # 0.1 K/mm3 (0.0-0.4); Eosinophils % 1.5 % (0.1-12.0); Hematocrit 33.1 % (37.0-47.0); Hemoglobin 10.3 g/dL (12.2-16.2); Lymphocytes # 0.9 K/mm3 (0.7-4.5); Lymphocytes % 20.7 % (10-50); Mean Corpuscular HGB Conc 31.2 g/dL (31.8-35.4); Mean Corpuscular Volume 89.4 fl (81-99); Mean Platelet Volume 8.4 fl (7.4-10.4); Monocytes # 0.4 K/mm3 (0.1-1.0); Monocytes % 10.2 % (1.7-9.3); Neutrophils # 2.8 K/mm3 (1.8-7.8); Neutrophils % 66.8 % (37.0-80.0); Platelet Count 157 K/mm3 (142-424); Red Blood Count 3.71 M/mm3 (4.20-5.40); Red Cell Distribution Width 17.9 % (11.5-17.5); White Blood Count 4.2 K/mm3 (4.8-10.8)
[2019-05-21 06:37] LABS: Albumin Level 2.8 gm/dL (3.4-5.0); Albumin/Globulin Ratio 0.9 (1.1-1.8); Anion Gap 10.8 mEq/L (5-15); Bilirubin,Total 1.5 mg/dL (0.2-1.0); Calcium 8.4 mg/dL (8.5-10.1); Globulin 3.1 gm/dl (1.3-3.2); Total Protein,Serum 5.9 gm/dL (6.4-8.2)
== END 2019-05-21 13:13 | disposition home or self-care (01) ==
LOC: ER 19:40 → 2ND 19:40
PROVIDERS: ADMIT Emergency Medicine; ATTEND Internal Medicine Adolescent Medicine
CPT/HCPCS: 36415; 49083; 70450; 71010; 71045; 72170; 73562; 74176; 80048; 80053; 80076; 81001; 82042; 82140; 83615; 83735; 84484; 85025; 85610; 85651; 86140; 87070; 87205; 89051; 93005; 97162; 99284; G0378; P9047

== ENCOUNTER → 2019-06-07 12:22 | Outpatient (CLI) | payer MEDICARE, SELFPAY ==
[2019-06-07 12:44] LABS: Basophils # 0.1 K/mm3 (0-0.2); Basophils % 0.9 % (0.1-2.0); Eosinophils # 0.1 K/mm3 (0.0-0.4); Eosinophils % 1.3 % (0.1-12.0); Hematocrit 38.2 % (37.0-47.0); Hemoglobin 11.8 g/dL (12.2-16.2); Lymphocytes # 0.8 K/mm3 (0.7-4.5); Mean Corpuscular HGB Conc 30.8 g/dL (31.8-35.4); Mean Corpuscular Hemoglobin 28.8 pg (27.0-31.2); Mean Corpuscular Volume 93.3 fl (81-99); Mean Platelet Volume 8.4 fl (7.4-10.4); Monocytes # 0.5 K/mm3 (0.1-1.0); Neutrophils # 6.2 K/mm3 (1.8-7.8); Neutrophils % 79.9 % (37.0-80.0); Platelet Count 234 K/mm3 (142-424); Red Blood Count 4.09 M/mm3 (4.20-5.40); Red Cell Distribution Width 16.9 % (11.5-17.5); White Blood Count 7.7 K/mm3 (4.8-10.8)
[2019-06-07 16:20] LABS: Hemoglobin A1C 5.7 % (0.0-7.0)
[2019-06-07 17:11] LABS: Alanine Aminotransferase 21 U/L (12-78); Albumin Level 3.3 gm/dL (3.4-5.0); Aspartate Amino Transferase 56 U/L (15-37); Blood Urea Nitrogen 18 mg/dL (7-18); Calcium 9.6 mg/dL (8.5-10.1); Cholesterol 156 mg/dL (140-200); Creatinine,Serum 1.19 mg/dL (0.55-1.02); Estimated Glomerular Filt Rate 44 ml/min (>60); GFR (African American) 53 ML/MIN (>60); Glucose 143 mg/dL (74-106)
[2019-06-07 17:49] LABS: Alkaline Phosphatase 231 U/L (46-116); Anion Gap 17.2 mEq/L (5-15); Bilirubin,Total 1.9 mg/dL (0.2-1.0); Carbon Dioxide 23 mmol/L (21.0-32.0); Chloride 97 mmol/L (98-107); HDL Cholesterol 40 mg/dL (29-89); Potassium 4.2 mmoL/L (3.5-5.1); Sodium 133 mmol/L (136-145); Total Protein,Serum 7.2 gm/dL (6.4-8.2); Triglycerides 126 mg/dL (30-200); VLDL Cholesterol 25 mg/dL (0-40)
[2019-06-07 17:50] LABS: Albumin/Globulin Ratio 0.8 (1.1-1.8); Globulin 3.9 gm/dl (1.3-3.2)
[2019-06-07 21:23] LABS: Chol/HDL Ratio 3.9 (1-3.5)
[2019-06-08 17:57] LABS: LDL Cholesterol 91 mg/dL (0-130)
== END ==
PROVIDERS: Visit Provider Internal Medicine
DX: E11.59 Type 2 diabetes mellitus with other circulatory complications (principal); E11.42 Type 2 diabetes mellitus with diabetic polyneuropathy; I25.10 Atherosclerotic heart disease of native coronary artery without angina pectoris; E78.5 Hyperlipidemia, unspecified; K74.60 Unspecified cirrhosis of liver
CPT/HCPCS: 36415; 80053; 80061; 83036; 85025

== ENCOUNTER → 2019-06-07 15:03 | Outpatient (POV) | payer MEDICARE, SELFPAY | PROVIDERS: PCP Internal Medicine; Visit Provider Nurse Practitioner Family | DX: Z00.00 Encounter for general adult medical examination without abnormal findings (principal) ==

== ENCOUNTER → 2019-07-13 12:31 | Outpatient (CLI) | payer MEDICARE, SELFPAY ==
[2019-07-13 13:24] LABS: INR 1.39 (0.9-1.1); Prothrombin Time 14.2 seconds (9.4-11.8)
[2019-07-13 13:25] LABS: Basophils % 0.2 % (0.1-2.0); Eosinophils # 0.1 K/mm3 (0.0-0.4); Eosinophils % 0.5 % (0.1-12.0); Hematocrit 37.7 % (37.0-47.0); Hemoglobin 11.8 g/dL (12.2-16.2); Lymphocytes # 0.9 K/mm3 (0.7-4.5); Lymphocytes % 8.4 % (10-50); Mean Corpuscular HGB Conc 31.4 g/dL (31.8-35.4); Mean Corpuscular Hemoglobin 29.8 pg (27.0-31.2); Mean Platelet Volume 8.7 fl (7.4-10.4); Monocytes # 0.8 K/mm3 (0.1-1.0); Monocytes % 6.9 % (1.7-9.3); Neutrophils % 83.9 % (37.0-80.0); Platelet Count 205 K/mm3 (142-424); Red Blood Count 3.97 M/mm3 (4.20-5.40); Red Cell Distribution Width 15.7 % (11.5-17.5); White Blood Count 10.7 K/mm3 (4.8-10.8)
[2019-07-13 13:28] LABS: Alanine Aminotransferase 7 U/L (12-78); Albumin Level 2.8 gm/dL (3.4-5.0); Albumin/Globulin Ratio 0.7 (1.1-1.8); Alkaline Phosphatase 186 U/L (46-116); Anion Gap 13.1 mEq/L (5-15); Aspartate Amino Transferase 27 U/L (15-37); Bilirubin,Total 2.2 mg/dL (0.2-1.0); Blood Urea Nitrogen 15 mg/dL (7-18); Calcium 9.1 mg/dL (8.5-10.1); Carbon Dioxide 29 mmol/L (21.0-32.0); Chloride 93 mmol/L (98-107); Creatinine,Serum 1.24 mg/dL (0.55-1.02); Estimated Glomerular Filt Rate 42 ml/min (>60); GFR (African American) 50 ML/MIN (>60); Globulin 3.8 gm/dl (1.3-3.2); Glucose 148 mg/dL (74-106); Potassium 3.1 mmoL/L (3.5-5.1); Sodium 132 mmol/L (136-145); Total Protein,Serum 6.6 gm/dL (6.4-8.2)
[2019-07-13 13:33] LABS: Ammonia 22 umol/L (19-54)
== END ==
PROVIDERS: Visit Provider Internal Medicine
DX: K74.60 Unspecified cirrhosis of liver (principal); R18.8 Other ascites
CPT/HCPCS: 36415; 80053; 82140; 85025; 85610

== ENCOUNTER 2019-07-14 08:36 | Outpatient (CLI) | payer MEDICARE, SELFPAY ==
[2019-07-14] VITALS (10 sets, daily range): BP systolic 122–139; BP diastolic 72–97; PULSE 115–143; RESP 18; TEMP 36.4; O2SAT 97–98
--- NOTE | 2019-07-14 08:39 | US_ITS ---
PROCEDURE: US PARACENTESIS CLINICAL INDICATION: ASCITES, CIRRHOSIS COMPARISON: No exams were available for comparison TECHNIQUE: Informed consent was obtain prior to procedure. After appropriate Time out, under aseptic conditions and local anesthesia with 1% buffered lidocaine using sonographic guidance a 4 [place] one-step catheter was inserted into the largest pocket of fluid localized in the right lower quadrant. Approximately 29343 mL of Serosanguineous fluid was drained. Fluid was sent to the lab for analysis. The patient tolerated the procedure well and left the radiology suite in stable condition. Patient was then sent for albumin infusion FINDINGS: Massive ascites IMPRESSION: Successful sonographic guided paracentesis without complication. Dictated by: Bartolome Graham MD 07/14/2019 18:38 Electronically signed by Bartolome Graham MD in [facility] 07/14/2019 18:38
[2019-07-14 10:05] LABS: Source, Body Fld. Peritoneal Fluid
[2019-07-14 10:06] LABS: Appearance,Body Fld. CLEAR; RBC,Body Fluid < 10 cells/uL (< 10 X 10^3); TNC,Body Fluid 156 cells/uL (< 1000); Volume,Body Fld. 20 mL
[2019-07-14 10:43] LABS: Mononuclear WBCs,Body Fluid 93 %; Polynuclear WBC,Body Fluid 7 %
== END 2019-07-14 15:45 | disposition home or self-care (01) ==
LOC: RAD 08:36 → INF 10:39
PROVIDERS: PCP Internal Medicine; Visit Provider Internal Medicine
DX: R18.8 Other ascites (principal); K74.69 Other cirrhosis of liver
CPT/HCPCS: 49083; 87070; 87205; 89051; 96365; 96366

== ENCOUNTER → 2019-07-27 16:14 | Outpatient (CLI) | payer MEDICARE, SELFPAY ==
[2019-07-27 19:01] LABS: Anion Gap 18.2 mEq/L (5-15); Blood Urea Nitrogen 21 mg/dL (7-18); Calcium 8.5 mg/dL (8.5-10.1); Carbon Dioxide 24 mmol/L (21.0-32.0); Chloride 93 mmol/L (98-107); Creatinine,Serum 1.68 mg/dL (0.55-1.02); Estimated Glomerular Filt Rate 29 ml/min (>60); GFR (African American) 35 ML/MIN (>60); Glucose 175 mg/dL (74-106); Potassium 3.2 mmoL/L (3.5-5.1); Sodium 132 mmol/L (136-145)
== END ==
PROVIDERS: Visit Provider Internal Medicine
DX: R18.8 Other ascites (principal); K74.69 Other cirrhosis of liver; K75.81 Nonalcoholic steatohepatitis (NASH)
CPT/HCPCS: 80048

== ENCOUNTER 2019-07-30 14:58 | Outpatient (RCR) | payer MEDICARE, SELFPAY | END 2019-07-30 14:59 | disposition home or self-care (01) | LOC: PT 14:58 | PROVIDERS: PCP Internal Medicine; Visit Provider Internal Medicine | DX: M62.81 Muscle weakness (generalized) (principal) | CPT/HCPCS: 97110; 97163 ==

== ENCOUNTER 2019-08-05 22:13 | Inpatient (IN) ==
[2019-08-05 23:15] LABS: Eosinophils % 0.2 % (0.1-12.0); Hematocrit 35.3 % (37.0-47.0); Hemoglobin 11.3 g/dL (12.2-16.2); Lymphocytes % 7.3 % (10-50); Mean Corpuscular HGB Conc 32.1 g/dL (31.8-35.4); Mean Corpuscular Volume 96.7 fl (81-99); Mean Platelet Volume 8.4 fl (7.4-10.4); Monocytes # 0.7 K/mm3 (0.1-1.0); Neutrophils % 87.4 % (37.0-80.0); Platelet Count 178 K/mm3 (142-424); Red Blood Count 3.65 M/mm3 (4.20-5.40); Red Cell Distribution Width 15.6 % (11.5-17.5); White Blood Count 13.7 K/mm3 (4.8-10.8)
[2019-08-05 23:22] LABS: Lymphocytes % 5 % (10-50); Monocytes % 1 % (2-9); Neutrophils % 88 % (42-76); Total Cells Counted 100
[2019-08-05 23:23] LABS: RBC Morphology Normal
[2019-08-05 23:27] LABS: Anion Gap 18.1 mEq/L (5-15); Calcium 9.5 mg/dL (8.5-10.1)
--- NOTE | 2019-08-06 00:09 | Emergency Department Note ---
ED Disposition Clinical Impression: Lesion of cerebellum Contusion of hip, left Qualifiers: Encounter type: initial encounter Qualified Code(s): S70.02XA - Contusion of left hip, initial encounter Ascites Qualifiers: Ascites type: other type Qualified Code(s): R18.8 - Other ascites Fall Qualifiers: Encounter type: initial encounter Qualified Code(s): W19.XXXA - Unspecified fall, initial encounter Disposition: Admitted as Observation Condition on Discharge: Fair Referrals: Julian Munoz [Primary Care Provider] - - Critical Care Critical Care Time: No Attestation: On 08/05/19, the high probability of a clinically significant, sudden or life threatening deterioration of the following system(s) required my full and direct attention, intervention and personal management. The time I documented below is in addition to time spent performing reported procedures but includes the following listed in this critical care notation. Medical Decision Making - Medical Records Medical records reviewed: Yes: I reviewed the patient's medical records. - Basim Inquiry Pt receiving controlled substance: No Vital Signs: 08/05/19 22:26 Temperature 97.8 F Temperature Source Oral Pulse Rate [Right Brachial] 93 H Respiratory Rate 18 Blood Pressure [Right Arm] 150/85 H Blood Pressure Mean [Right Arm] 106 Blood Pressure Source [Right Arm] Automatic Cuff Blood Pressure Position [Right Arm] Sitting 02 Sat by Pulse Oximetry 99 Oxygen Delivery Method Room Air - Lab Data Lab results reviewed: Yes: I reviewed the patient's lab results. Lab Results 08/05/19 23:03: WBC 13.7 H, RBC 3.65 L, Hgb 11.3 L, Hct 35.3 L, MCV 96.7, MCH 31.0, MCHC 32.1, RDW 15.6, Plt Count 178, MPV 8.4, Neut % (Auto) 87.4 H, Lymph % (Auto) 7.3 L, [place] % (Auto) 5.0, Eos % (Auto) 0.2, Baso % (Auto) 0.0 L, Neut # (Auto) 12.0 H, Lymph # (Auto) 1.0, [place] # (Auto) 0.7, Eos # (Auto) 0.0, Baso # (Auto) 0.0, Total Counted 100, Neutrophils % (Manual) 88 H, Band Neutrophils % 6.0, Lymphocytes % (Manual) 5 L, Monocytes % (Manual) 1 L, Platelet Estimate Normal, RBC Morphology Normal 08/05/19 23:03: Sodium 130 L, Potassium 4.1, Chloride 91 L, Carbon Dioxide 25, Anion Gap 18.1 H, BUN 22 H, Creatinine 1.71 H, Estimated Creat Clear 25, Estimated GFR 29 L, Est GFR ( Amer) 35 L, Glucose 149 H, Calcium 9.5, Troponin I 0.08 H 08/05/19 23:03: PT 13.8 H, INR 1.35 H 08/05/19 23:03: Total Bilirubin 2.2 H, Direct Bilirubin 0.9 H, Indirect Bilirub in 1.3 H, AST 45 H, ALT 20, Alkaline Phosphatase 179 H, Total Protein 7.3, Albumin 3.4 08/06/19 00:30: Ammonia 17 L Result diagrams: 08/05/19 23:03 08/05/19 23:03 Orders (Tests/Meds): ED MEDICATIONS Generic Name Dose Route Start Last Admin Trade Name Freq PRN Reason Stop Dose Admin Sodium Chloride 1,000 mls @ 999 mls/hr 08/05/19 23:15 08/05/19 23:59 Sod Chlor 0.9% 1000ml Bag IV 08/06/19 00:15 999 mls/hr .Q1H1M MEDINA Administration ORDERS Category Date Time Status CT cervical spine wo con Stat Cat Scan 08/05/19 22:[address] head/brain wo con Stat Cat Scan 08/05/19 22:[address] pelvis wo con Stat Cat Scan 08/06/19 00:23 Taken XR chest AP Stat Exams 08/05/19 22:50 Taken XR femur LT 2V Stat Exams 08/05/19 22:52 Taken XR pelvis 1-2V Stat Exams 08/05/19 22:49 Taken Troponin I Q3H Lab 08/06/19 02:00 Ordered Troponin I Q3H Lab 08/06/19 05:00 Ordered Urinalysis and Microscopic Stat Lab 08/05/19 23:00 Ordered - Radiology Data #1 Image(s): Chest, Pelvis, Femur Image Reviewed: Yes I reviewed the patient's radiology image Preliminary Findings: Abnormal (possible fx ) - CT Data CT Scan: Head, C-Spine, Pelvis, Other (hip) Time Received: 02:[address] Reviewed: Yes: I have viewed the radiologist's interpretation Preliminary Findings: Abnormal, No Fracture Seen - ECG Data Tracing #1 Arrhythmias present: afib Ischemic changes: non-specific ST-T wave changes - Physician Consults Physician Consulted: alondra Reason -: Admission Fall HPI - General Chief Complaint: Fall Stated Complaint: AO 1226 fall L Leg.hit head,weakness Time Seen by Provider: 08/05/19 23:00 Mode of Arrival: Wheelchair Source of Information: Patient, Relative, Medical Record Limitations: No Limitations Description of Symptoms (Recalled from ER Triage Doc. by RN): Patient c/o of left hip and leg pain and weakness. Patient reports she fell this morning approx 1000 at home while in the bathroom. Patient reports she has fallen several times in the last couple of days. Patient denies any loss of conciousness. - History of Present Illness HPI Narrative: pt with multiple falls - last this am about 10 am - she reports she has falls because of weakness - she has roller-walker- she has hx of ascites from liver disease caused by fatty liver - she reports lt hip pain now but no neck or chest pain - no speech or visual sx- no focal neuro sx and no posturing - no gross confusion reported - MD complaint: fall Onset (ago): hour(s) Fall from: standing Fall witnessed: no Place fall occurred: home Loss of consciousness: none Prolonged down time: no Symptoms prior to fall: none Context: tripped/slipped, history of frequent falls Location of injury: head Location of injury - extremities: Left: thigh Severity: moderate Associated symptoms (after fall): denies - Related Data Home Medications Medication Instructions Recorded Confirmed paroxetine HCl 20 mg tablet 20 mg PO QAM 10/13/17 08/05/19 cholecalciferol (vitamin D3) 25 1,000 unit PO DAILY cap 02/18/18 08/05/19 mcg (1,000 unit) capsule multivitamin 1 tab PO QAM 02/18/18 08/05/19 vitamin B complex 1 tab PO DAILY tab 02/18/18 08/05/19 Budesonide/Formoterol Fumarate 1 puffs INHALATION BID 05/20/19 08/05/19 [Symbicort 160-4.5 Mcg Inhaler] Colesevelam HCl [Welchol] 625 mg PO BID 05/20/19 08/05/19 Levothyroxine Sodium 100 mcg PO DAILY 05/20/19 08/05/19 [Levothyroxine 100mcg (0.1MG) Tab] Spironolactone 100 mg PO DAILY 05/20/19 08/05/19 dilTIAZem HCl [Cartia Xt] 300 mg PO DAILY 05/20/19 08/05/19 Propranolol HCl [Inderal 20mg 10 mg PO Q8H 07/14/19 08/05/19 tablet] Allergies Allergy/AdvReac Type Severity Reaction Status Date / Time Sulfa (Sulfonamide Allergy Mild Verified 08/05/19 22:42 Antibiotics) [facility] History - Hepatitis A Screen Drug use history?: No High risk sexual behaviors?: No History of sexually transmitted infection?: No Currently employed?: No Childcare worker?: No Do you have indoor plumbing?: Yes Do you have electricity?: Yes Attestation statement:: This patient has been screened for Hepatitis A risk factors. I have reviewed the patient's past medical history: Yes Medical History: Reports:: Atrial Fibrillation, Cancer (breast), Coronary Artery Disease, Hyperlipidemia, Hypertension Denies:: Diabetes Mellitus Type 1, Diabetes Mellitus Type 2, MRSA Other Medical History: Reports: Anemia, Arthritis, Radiation Therapy Laterality Cases: Left: Lumpectomy, Mastectomy Other Surgeries: Yes: CABG, Cancer Surgery (mastectomy), Cardiac Catheterization, Cardiac Surgery, Cholecystectomy, Colonoscopy Amputation: No Fractures: Yes (RIGHT FEMUR WITH PLATE) - Social History Smoking Status: Never smoker Alcohol Intake: never Alcohol Intake Frequency:: other Substance Use Type: denies use Occupational Status: retired Housing: house Household Members: none Family Hx:: Asthma, Cancer, Coronary Artery Disease, Heart Attack, Hypertension, Kidney Disease ROS Obtained: Yes All systems reviewed & no additional complaints - Constitutional Constitutional: Denies fever(s) - Eyes Eyes: Denies change in vision - ENT Ears, Nose, Mouth, and Throat: Denies dizziness, Denies headache(s) - Cardiovascular Cardiovascular: Denies chest pain - Respiratory Respiratory: No cough - Gastrointestinal Gastrointestingal: Denies: abdominal pain - Genitourinary Female Genitourinary: Denies hematuria - Musculoskeletal Musculoskeletal: Reports as per HPI, Reports joint pain, Reports limited range of motion, Denies neck pain - Integumentary/Breasts Skin/Breast: Denies rash - Neurologic Neurologic: Denies abnormal speech, Denies focal weakness, Denies loss of vision, Denies seizure-like activity, Denies vertigo Physical Exam - General General appearance: alert, in no apparent distress - Head Head exam: normocephalic - Eye Eye exam: Present: PERRL, EOMI. Absent: scleral icterus, nystagmus - ENT ENT exam: Present: mucous membranes dry - Neck Neck exam: Present: trachea midline. Absent: tenderness - Respiratory Respiratory exam: Present: normal lung sounds bilaterally. Absent: respiratory distress - Cardiovascular Cardiovascular exam: Present: irregular rhythm, systolic murmur - Abdominal Exam Abdominal exam: Present: soft, distention. Absent: tenderness, guarding - Expanded Lower Extremity Exam Left Hip/Pelvis exam: Present: pelvis stable, pain on hip/pelvis palpation, hip pain on leg movement - Neurological Exam Neurological exam: Present: alert, oriented X3, CN II-XII intact, other (gcs=15). Absent: motor sensory deficit - Psychiatric Psychiatric exam: Present: normal affect - Skin Skin exam: Absent: rash
[2019-08-06 00:43] LABS: INR 1.35 (0.9-1.1); Prothrombin Time 13.8 seconds (9.4-11.8)
[2019-08-06 00:50] LABS: Albumin Level 3.4 gm/dL (3.4-5.0); Bilirubin,Direct 0.9 mg/dL (0.0-0.2); Bilirubin,Indirect 1.3 mg/dL (0.0-0.9); Bilirubin,Total 2.2 mg/dL (0.2-1.0); Total Protein,Serum 7.3 gm/dL (6.4-8.2)
[2019-08-06 03:39] LABS: Microscopic, Urine URINE MICROSCOPIC (MICROSCOPIC)
[2019-08-06 03:47] LABS: Appearance,Urine CLEAR (Clear); Bilirubin,Urine Negative (Negative); Blood, Urine 3+ (Negative); Color,Urine DK YELLOW (Yellow); Glucose,Urine (UA) Negative (Negative); Ketones,Urine Negative (Negative); Leukocyte Esterase,Urine Negative (Negative); Protein,Urine TRACE (Negative); Specific Gravity, Urine >= 1.030 (1.005-1.030); Urobilinogen,Urine 0.2 EU/dl (0.2)
[2019-08-06 03:53] LABS: Amorphous Sediment,Urine 2+ /lpf; Squamous Epithelial Cell,Urine 20-50 #/hpf (0-5)
[2019-08-06 05:49] LABS: Basophils % 0.1 % (0.1-2.0); Eosinophils # 0.1 K/mm3 (0.0-0.4); Eosinophils % 0.9 % (0.1-12.0); Hematocrit 32.6 % (37.0-47.0); Hemoglobin 10.7 g/dL (12.2-16.2); Lymphocytes # 0.9 K/mm3 (0.7-4.5); Lymphocytes % 6.5 % (10-50); Mean Corpuscular HGB Conc 32.7 g/dL (31.8-35.4); Mean Corpuscular Volume 94.1 fl (81-99); Mean Platelet Volume 9.3 fl (7.4-10.4); Monocytes # 0.8 K/mm3 (0.1-1.0); Monocytes % 5.7 % (1.7-9.3); Neutrophils # 12.5 K/mm3 (1.8-7.8); Neutrophils % 86.8 % (37.0-80.0); Platelet Count 139 K/mm3 (142-424); Red Blood Count 3.47 M/mm3 (4.20-5.40); Red Cell Distribution Width 15.6 % (11.5-17.5); White Blood Count 14.4 K/mm3 (4.8-10.8)
[2019-08-06 06:07] LABS: Anion Gap 19.6 mEq/L (5-15); Calcium 8.6 mg/dL (8.5-10.1)
--- NOTE | 2019-08-06 08:24 | History & Physical Report ---
*Admission Date: 08/06/19 *Chief complaint: fall *History of present illness: 78-year-old female with multiple comorbidities including Viramontes cirrhosis w/ ascites, atrial fibrillation, hypertension, progressive debility, and history of CABG who presented to the ER after falling yesterday morning. Of note she has fallen multiple times in the past week. She was admitted in May for similar presentation. She reports not following up with her primary care doctor after last admission and has had paracentesis performed twice including once at last admission. Lives by herself. Denies any fever, chest pain, nausea, vomiting. Feels weak and falls often. Came to the ER because of left leg/hip pain. Found to have no acute fractures but does have significant ascites on exam. Labs concerning for KARLA, and liver dysfunction with abnormal INR, elevated bilirubin, thrombocytopenia. Admitted for management of kidney injury and paracentesis. Would benefit from physical therapy assessment as well. [facility] History I have reviewed the patient's past medical history: Yes Medical History: Reports:: Atrial Fibrillation, Cancer (breast), Coronary Artery Disease, Hyperlipidemia, Hypertension Denies:: Diabetes Mellitus Type 1, Diabetes Mellitus Type 2, MRSA *Have you ever received a pneumonia vaccine?: No *Have you received a flu vaccine this season?: No Other Medical History: Reports: Anemia, Arthritis, Radiation Therapy Laterality Cases: Left: Lumpectomy, Mastectomy Other Surgeries: Yes: CABG, Cancer Surgery (mastectomy), Cardiac Catheterization, Cardiac Surgery, Cholecystectomy, Colonoscopy Amputation: No Fractures: Yes (RIGHT FEMUR WITH PLATE) - *Social History Educational Level: Completed High School Smoking Status: Never smoker Alcohol Intake: never Alcohol Intake Frequency:: other Substance Use Type: denies use *Occupational Status:: retired Housing: house Household Members: none *Travel in the last 8 weeks: None Family Hx:: Cancer, Coronary Artery Disease, Diabetes, Heart Attack, Hy perlipidemia, Hypertension, Stroke Review of Systems - Review of Systems Review of systems:: pertinent systems reviewed and negative unless documented below - *Neurologic Denies abnormal speech, Denies dizziness, Denies localized weakness, Denies headache(s), Denies loss of vision, Denies seizure-like activity, Denies dizziness Meds Home Medications Medication Instructions Recorded Confirmed Type paroxetine HCl 20 mg tablet 20 mg PO DAILY 10/13/17 08/06/19 History cholecalciferol (vitamin D3) 25 1,000 unit PO DAILY cap 02/18/18 08/05/19 History mcg (1,000 unit) capsule multivitamin 1 tab PO DAILY 02/18/18 08/06/19 History vitamin B complex 1 tab PO DAILY tab 02/18/18 08/05/19 History Budesonide/Formoterol Fumarate 1 puffs INHALATION BID 05/20/19 08/05/19 History [Symbicort 160-4.5 Mcg Inhaler] Colesevelam HCl [Welchol] 625 mg PO BID 05/20/19 08/05/19 History Levothyroxine Sodium 100 mcg PO DAILY 05/20/19 08/05/19 History [Levothyroxine 100mcg (0.1MG) Tab] Spironolactone 100 mg PO TID 05/20/19 08/06/19 History dilTIAZem HCl [Cartia Xt] 300 mg PO DAILY 05/20/19 08/05/19 History Propranolol HCl [Inderal 20mg 10 mg PO Q8H 07/14/19 08/05/19 History tablet] Dicyclomine HCl [Bentyl 10mg 10 mg PO BID 08/06/19 08/06/19 History capsule] Allergies Allergy/AdvReac Type Severity Reaction Status Date / Time Sulfa (Sulfonamide Allergy Mild Verified 08/05/19 22:42 Antibiotics) Exam Vital signs and Labs for Last 24 Hours: Temp Pulse Resp BP Pulse Ox 97.8 F 103 H 16 149/69 H 98 08/06/19 03:13 08/06/19 03:13 08/06/19 03:13 08/06/19 03:13 08/06/19 03:59 Laboratory Results - last 24 hr 08/05/19 23:03: WBC 13.7 H, RBC 3.65 L, Hgb 11.3 L, Hct 35.3 L, MCV 96.7, MCH 31.0, MCHC 32.1, RDW 15.6, Plt Count 178, MPV 8.4, Neut % (Auto) 87.4 H, Lymph % (Auto) 7.3 L, [place] % (Auto) 5.0, Eos % (Auto) 0.2, Baso % (Auto) 0.0 L, Neut # (Auto) 12.0 H, Lymph # (Auto) 1.0, [place] # (Auto) 0.7, Eos # (Auto) 0.0, Baso # (Auto) 0.0, Total Counted 100, Neutrophils % (Manual) 88 H, Band Neutrophils % 6.0, Lymphocytes % (Manual) 5 L, Monocytes % (Manual) 1 L, Platelet Estimate Normal, RBC Morphology Normal 08/05/19 23:03: Sodium 130 L, Potassium 4.1, Chloride 91 L, Carbon Dioxide 25, Anion Gap 18.1 H, BUN 22 H, Creatinine 1.71 H, Estimated Creat Clear 25, Estimated GFR 29 L, Est GFR ( Amer) 35 L, Glucose 149 H, Calcium 9.5, Troponin I 0.08 H 08/05/19 23:03: PT 13.8 H, INR 1.35 H 08/05/19 23:03: Total Bilirubin 2.2 H, Direct Bilirubin 0.9 H, Indirect Bilirubin 1.3 H, AST 45 H, ALT 20, Alkaline Phosphatase 179 H, Total Protein 7.3, Albumin 3.4 08/06/19 00:30: Ammonia 17 L 08/06/19 02:25: Troponin I 0.05 08/06/19 03:30: Urine Color Dk yellow, Urine Appearance Clear, Urine pH 5.0, Ur Specific [place] >= 1.030, Urine Protein Trace, Urine Glucose (UA) Negative, Urine Ketones Negative, Urine Blood 3+, Urine Nitrate Negative, Urine Bilirubin Negative, Urine Urobilinogen 0.2, Ur Leukocyte Esterase Negative, Urine RBC 5- 10, Ur Squamous Epith Cells 20-50, Amorphous Sediment 2+ 08/06/19 05:20: WBC 14.4 H, RBC 3.47 L, Hgb 10.7 L, Hct 32.6 L, MCV 94.1, MCH 30.8, MCHC 32.7, RDW 15.6, Plt Count 139 L, MPV 9.3, Neut % (Auto) 86.8 H, Lymph % (Auto) 6.5 L, [place] % (Auto) 5.7, Eos % (Auto) 0.9, Baso % (Auto) 0.1, Neut # (Auto) 12.5 H, Lymph # (Auto) 0.9, [place] # (Auto) 0.8, Eos # (Auto) 0.1, Baso # (Auto) 0.0 08/06/19 05:20: Sodium 131 L, Potassium 4.6, Chloride 94 L, Carbon Dioxide 22, Anion Gap 19.6 H, BUN 19 H, Creatinine 1.15 H D, Estimated Creat Clear 37, Estimated GFR 45 L, Est GFR ( Amer) 55 L D, Glucose 123 H, Calcium 8.6, Magnesium 1.7, Troponin I 0.03 I & O for Last 24 hours: Intake & Output 08/03/19 08/04/19 08/05/19 08/06/19 23:59 23:59 23:59 23:59 Intake Total 172 / 172 Balance 172 / 172 Weight 60.781 kg 60.781 kg - Constitutional mild distress, cachectic Comments: Bitemporal wasting - *Routine HEENT Exam Head: Present: atraumatic Eye: Present: EOMI, PERRL ENT: Present: mucous membranes moist Comments: Scleral icterus - *Routine Neck Exam Present: supple. Absent: lymphadenopathy - Routine Chest/Breast/Axilla Exam Chest wall: Present: mass (Large avocado sized mass left upper chest. Nonpainful. Nonmobile.) - *Routine Respiratory Exam Present: CTA bilaterally. Absent: wheezes - *Routine Cardiovascular Exam Present: RRR - *Routine Abdominal Exam Present: distended. Absent: tenderness Comments: Hypoactive bowel sounds, ascites, significant vascular markings across abdomen. - *Routine Extremities Exam Absent: cyanosis, clubbing, edema Comments: Thin, loss of muscle mass - *Routine Skin Exam Present: intact, dry. Absent: cyanosis, erythema Comments: Slight yellow-santa tinge globally - *Routine Neurological Exam Present: alert, oriented X3. Absent: altered mental status Easily distracted, no asterixis present - Routine Psychiatric Exam Present: normal affect, normal thought process Assessment and Plan (1) Thrombocytopenia Current visit: Yes Status: Acute Category: Medical Code(s): D69.6 - Thrombocytopenia, unspecified (2) Coagulopathy Current visit: Yes Status: Acute Category: Medical Code(s): D68.9 - Coagulation defect, unspecified (3) Ascites Problem details: No concern for SBP as patient has no fever, abdominal pain, altered mental status Current visit: Yes Status: Acute Qualifiers: Ascites type: other type Qualified Code(s): R18.8 - Other ascites Category: Medical Code(s): R18.8 - Other ascites (4) Contusion of hip, left Current visit: Yes Status: Acute Qualifiers: Encounter type: initial encounter Qualified Code(s): S70.02XA - Contusion of left hip, initial encounter Category: Medical Code(s): S70.02XA - Contusion of left hip, initial encounter (5) Fall Current visit: Yes Status: Acute Qualifiers: Encounter type: initial encounter Qualified Code(s): W19.XXXA - Unspecified fall, initial encounter Category: Medical Code(s): W19.XXXA - Unspecified fall, initial encounter (6) Lesion of cerebellum Current visit: Yes Status: Acute Category: Medical Code(s): G93.9 - Disorder of brain, unspecified (7) Falls frequently Current visit: No Status: Acute Category: Medical Code(s): R29.6 - Repeated falls (8) Hypertensive heart disease without heart failure Current visit: No Status: Acute Category: Medical Code(s): I11.9 - Hypertensive heart disease without heart failure (9) Right bundle branch block Current visit: No Status: Acute Category: Medical Code(s): I45.10 - Unspecified right bundle-branch block (10) Cirrhosis Current visit: No Status: Chronic Qualifiers: Hepatic cirrhosis type: other cirrhosis Qualified Code(s): K74.69 - Other cirrhosis of liver Category: Medical Code(s): K74.60 - Unspecified cirrhosis of liver Viramontes cirrhosis. Meld score 23, 19.6% estimated 3-month mortality. Child [place] score 9, class B. 30% mortality risk in abdominal surgery perioperative setting. Patient established with GI. Status post paracentesis x2. Given coagulopathy, patient would be safest managed with paracentesis performed by interventional radiology. (11) Portal hypertension Problem details: continue Propranolol. Hold diuretics in setting of soft BPs, defer resumption to Hepatology follow-up. Current visit: No Status: Chronic Category: Medical Code(s): K76.6 - Portal hypertension (12) Renal insufficiency Current visit: No Status: Acute Category: Medical Code(s): N28.9 - Disorder of kidney and ureter, unspecified Concerning for hepatorenal syndrome given ascites and distention. Improved with fluid resuscitation. Will monitor for improvement after paracentesis and decreasing intra-abdominal pressure. - Assessment and plan all Dx Assessment and Plan for all problems:: 78-year-old female with multiple comorbidities and compensated cirrhosis who presents with worsening falls, debility and recurrence of abdominal ascites. Kidney function abnormal on admission secondary to prerenal KARLA. Differential diagnosis consists of hepatorenal syndrome versus depleted intravascular volume. Responded well to fluid resuscitation. Will pursue paracentesis today to assess for SBP though low likelihood given no abdominal discomfort, peritonitis, fever. Elevated white count concerning however for possible infection versus the marginalization from fall. Will monitor for improvement with serial labs. No antibiotics indicated at this time as she is afebrile and has no focal signs of infection. Extensive scan showed no new fractures on imaging however head CT did show concern for possible old cerebellar infarct. Additionally patient has large mass on left chest concerning for hematoma versus tumor. Will pursue ultrasound to assess etiology. At this time of strong concern for patient's ability to go back home and be safe. She currently lives by herself, falls or regular occurrence. Given her cirrhosis, coagulopathy, thrombocytopenia, and cachexia, I worry about her ability to care for herself and live independently. We will have physical therapy assess for placement needs for possible rehab. Anticipate admission through the weekend as we advance diet, address ascites, and monitor for sign of infection. Potential placement on Friday pending evaluation from halfway. Patient's condition serious, prognosis poor. Remains full code.
--- NOTE | 2019-08-06 08:54 | Electrocardiograph Report ---
APPROVED REPORT Exam: Resting ECG HR:94 bpm ECG Measurements Heart Rate 94 AXES QRSd 96 QRS 1 QT 402 T-24 QTc 502 <Conclusion> Atrial fibrillation Incomplete RBBB Low voltage QRS Nonspecific ST and T wave abnormality, probably digitalis effect Prolonged QT Abnormal ECG Electronically signed by : Julian Munoz, 08/06/2019 08:53:36
[2019-08-06 09:57] LABS: Albumin Level 2.7 gm/dL (3.4-5.0); Calcium 8.5 mg/dL (8.5-10.1)
--- NOTE | 2019-08-06 10:09 | Pharmacy Consult Notes ---
[facility] Pharmacy VTE Monitoring - Patient Demographics Admission date: 08/06/19 Report Date: 08/06/19 Time: 10:09 Allergies/Adverse Reactions: Patient Allergies Sulfa (Sulfonamide Antibiotics) Allergy (Mild, Verified 08/05/19 22:42) Height: 1.63 m Weight: 60.781 kg Patient Problems: Current Active Problems Ascites (Acute) Contusion of hip, left (Acute) Fall (Acute) Lesion of cerebellum (Acute) Thrombocytopenia (Acute) Coagulopathy (Acute) - VTE Risk Labs: VTE Related Lab Results Hgb 10.7 g/dL (12.2-16.2) L 08/06/19 05:20 Hct 32.6 % (37.0-47.0) L 08/06/19 05:20 Plt Count 139 K/mm3 (142-424) L 08/06/19 05:20 PT 13.8 seconds (9.4-11.8) H 08/05/19 23:03 INR 1.35 (0.9-1.1) H 08/05/19 23:03 BUN 19 mg/dL (7-18) H 08/06/19 05:20 Creatinine 1.15 mg/dL (0.55-1.02) H D 08/06/19 05:20 Estimated Creat Clear 37 mL/min (50-200) 08/06/19 05:20 Was VTE Risk Assessment Performed: No VTE Score: 7 VTE Risk Level: Moderate Risk - Prophylaxis VTE Prophylaxis Ordered?: Yes Types of VTE Prophylaxis: TEDS Knee High Location of Applied Device: Bilateral Lower Extremeties
[2019-08-06 10:41] LABS: Albumin/Globulin Ratio 0.8 (1.1-1.8); Anion Gap 15.2 mEq/L (5-15); Bilirubin,Total 1.9 mg/dL (0.2-1.0); Globulin 3.3 gm/dl (1.3-3.2)
[2019-08-07 07:30] LABS: Basophils % 0.1 % (0.1-2.0); Eosinophils % 0.2 % (0.1-12.0); Hematocrit 31.9 % (37.0-47.0); Hemoglobin 9.8 g/dL (12.2-16.2); Lymphocytes # 0.8 K/mm3 (0.7-4.5); Lymphocytes % 5.4 % (10-50); Mean Corpuscular HGB Conc 30.8 g/dL (31.8-35.4); Mean Corpuscular Volume 96.8 fl (81-99); Mean Platelet Volume 8.7 fl (7.4-10.4); Monocytes # 0.9 K/mm3 (0.1-1.0); Monocytes % 6.8 % (1.7-9.3); Neutrophils # 12.2 K/mm3 (1.8-7.8); Neutrophils % 87.6 % (37.0-80.0); Platelet Count 146 K/mm3 (142-424); Red Cell Distribution Width 16.7 % (11.5-17.5); White Blood Count 13.9 K/mm3 (4.8-10.8)
[2019-08-07 07:45] LABS: Albumin Level 2.9 gm/dL (3.4-5.0); Albumin/Globulin Ratio 1.2 (1.1-1.8); Anion Gap 10.8 mEq/L (5-15); Bilirubin,Total 2.3 mg/dL (0.2-1.0); Calcium 8.3 mg/dL (8.5-10.1); Globulin 2.5 gm/dl (1.3-3.2); Phosphorous 2.4 mg/dL (2.4-4.9); Total Protein,Serum 5.4 gm/dL (6.4-8.2)
[2019-08-07 09:31] LABS: Lymphocytes % 6 % (10-50); Monocytes % 4 % (2-9); Neutrophils % 89 % (42-76); RBC Morphology Normal; Total Cells Counted 100
--- NOTE | 2019-08-07 15:26 | Progress Note ---
Internal Medicine - PN: Subj *Date: 08/07/19 *Time: 15:23 Interval history: Did well overnight. Remains afebrile. Still weak and complaining of some left leg pain. Denies chest pain, shortness of breath, nausea or vomiting. Tolerated paracentesis well. No abdominal pain or discomfort. Patient pleasant on exam. Tolerating small amounts of p.o. intake Exam Vital signs and Labs for Last 24 Hours: Temp Pulse Resp BP Pulse Ox 97.4 F L 105 H 18 126/76 95 08/07/19 08:00 08/07/19 08:00 08/07/19 08:00 08/07/19 08:00 08/07/19 08:00 Laboratory Results - last 24 hr 08/07/19 06:45: WBC 13.9 H, RBC 3.30 L, Hgb 9.8 L, Hct 31.9 L, MCV 96.8, MCH 29.9, MCHC 30.8 L, RDW 16.7, Plt Count 146, MPV 8.7, Neut % (Auto) 87.6 H, Lymph % (Auto) 5.4 L, [place] % (Auto) 6.8, Eos % (Auto) 0.2, Baso % (Auto) 0.1, Neut # (Auto) 12.2 H, Lymph # (Auto) 0.8, [place] # (Auto) 0.9, Eos # (Auto) 0.0, Baso # (Auto) 0.0, Total Counted 100, Neutrophils % (Manual) 89 H, Band Neutrophils % 1.0, Lymphocytes % (Manual) 6 L, Monocytes % (Manual) 4, Platelet Estimate Normal, RBC Morphology Normal 08/07/19 06:45: Sodium 131 L, Potassium 3.8, Chloride 97 L, Carbon Dioxide 27, Anion Gap 10.8, BUN 19 H, Creatinine 1.18 H, Estimated Creat Clear 36, Estimated GFR 44 L, Est GFR ( Amer) 53 L, Glucose 132 H D, Calcium 8.3 L, Phosphorus 2.4, Magnesium 1.6, Total Bilirubin 2.3 H, AST 20 D, ALT 7 L D, Alkaline Phosphatase 130 H, Total Protein 5.4 L, Albumin 2.9 L, Globulin 2.5, Albumin/Globulin Ratio 1.2 I & O for Last 24 hours: Intake & Output 08/04/19 08/05/19 08/06/19 08/07/19 23:59 23:59 23:59 23:59 Intake Total 800 / 800 600 / 600 Output Total 200 / 200 300 / 300 Balance 600 / 600 300 / 300 Weight 60.781 kg 60.781 kg 59.988 kg Narrative: - Constitutional NAD, cachectic, Bitemporal wasting - *Routine HEENT Exam Head: Present: atraumatic Eye: Present: EOMI, PERRL ENT: Present: mucous membranes moist Comments: Scleral icterus - *Routine Neck Exam Present: supple. Absent: lymphadenopathy - Routine Chest/Breast/Axilla Exam Chest wall: Present: mass (Large avocado sized mass left upper chest. Nonpainful. Nonmobile.) - *Routine Respiratory Exam Present: CTA bilaterally. Absent: wheezes - *Routine Cardiovascular Exam Present: RRR - *Routine Abdominal Exam Present: distended. Absent: tenderness Comments: Normal active bowel sounds, decrease in distention of abdomen, ascites still present. - *Routine Extremities Exam Absent: cyanosis, clubbing, edema Comments: Thin, loss of muscle mass - *Routine Skin Exam Present: intact, dry. Absent: cyanosis, erythema Comments: Slight yellow-santa tinge globally - *Routine Neurological Exam Present: alert, oriented X3. Absent: altered mental status, Easily distracted, no asterixis present - Routine Psychiatric Exam Present: normal affect, normal thought process Assessment and Plan (1) Thrombocytopenia Current visit: Yes Status: Acute Category: Medical Code(s): D69.6 - Thrombocytopenia, unspecified (2) Coagulopathy Current visit: Yes Status: Acute Category: Medical Code(s): D68.9 - Coagulation defect, unspecified (3) Ascites Problem details: No concern for SBP as patient has no fever, abdominal pain, altered mental status Current visit: Yes Status: Acute Qualifiers: Ascites type: other type Qualified Code(s): R18.8 - Other ascites Category: Medical Code(s): R18.8 - Other ascites (4) Contusion of hip, left Current visit: Yes Status: Acute Qualifiers: Encounter type: initial encounter Qualified Code(s): S70.02XA - Contusion of left hip, initial encounter Category: Medical Code(s): S70.02XA - Contusion of left hip, initial encounter (5) Fall Current visit: Yes Status: Acute Qualifiers: Encounter type: initial encounter Qualified Code(s): W19.XXXA - Unspecified fall, initial encounter Category: Medical Code(s): W19.XXXA - Unspecified fall, initial encounter (6) Lesion of cerebellum Current visit: Yes Status: Acute Category: Medical Code(s): G93.9 - Disorder of brain, unspecified (7) Falls frequently Current visit: No Status: Acute Category: Medical Code(s): R29.6 - Repeated falls (8) Hypertensive heart disease without heart failure Current visit: No Status: Acute Category: Medical Code(s): I11.9 - Hypertensive heart disease without heart failure (9) Right bundle branch block Current visit: No Status: Acute Category: Medical Code(s): I45.10 - Unspecified right bundle-branch block (10) Cirrhosis Current visit: No Status: Chronic Qualifiers: Hepatic cirrhosis type: other cirrhosis Qualified Code(s): K74.69 - Other cirrhosis of liver Category: Medical Code(s): K74.60 - Unspecified cirrhosis of liver (11) Portal hypertension Problem details: continue Propranolol. Hold diuretics in setting of soft BPs, defer resumption to Hepatology follow-up. Current visit: No Status: Chronic Category: Medical Code(s): K76.6 - Portal hypertension (12) Renal insufficiency Current visit: No Status: Acute Category: Medical Code(s): N28.9 - Disorder of kidney and ureter, unspecified - Assessment and plan all Dx Assessment and Plan for all problems:: 78-year-old female with [place] cirrhosis. Status post paracentesis yesterday with removal of approximately 5 L. Doing somewhat better today however still having difficulty working with physical therapy. Anticipate placement needs. May require additional paracentesis before discharge. Continue inpatient management. Tolerating increase in propranolol. We will continue to titrate for ascites management. Hospice consulted to discuss options with patient, no decision for admission at this time.
[2019-08-08 08:07] LABS: Basophils % 0.1 % (0.1-2.0); Eosinophils # 0.1 K/mm3 (0.0-0.4); Eosinophils % 0.5 % (0.1-12.0); Hematocrit 33.2 % (37.0-47.0); Hemoglobin 10.2 g/dL (12.2-16.2); Lymphocytes # 1.4 K/mm3 (0.7-4.5); Lymphocytes % 7.7 % (10-50); Mean Corpuscular HGB Conc 30.7 g/dL (31.8-35.4); Mean Corpuscular Volume 97.4 fl (81-99); Mean Platelet Volume 8.9 fl (7.4-10.4); Monocytes # 1.2 K/mm3 (0.1-1.0); Monocytes % 6.4 % (1.7-9.3); Neutrophils # 15.7 K/mm3 (1.8-7.8); Neutrophils % 85.2 % (37.0-80.0); Platelet Count 224 K/mm3 (142-424); Red Blood Count 3.41 M/mm3 (4.20-5.40); Red Cell Distribution Width 16.7 % (11.5-17.5); White Blood Count 18.4 K/mm3 (4.8-10.8)
[2019-08-08 08:09] LABS: Anion Gap 14.7 mEq/L (5-15); Calcium 8.6 mg/dL (8.5-10.1)
[2019-08-08 08:58] LABS: Anisocytosis 1+; Lymphocytes % 7 % (10-50); Macrocytosis 1+; Monocytes % 5 % (2-9); Neutrophils % 86 % (42-76); Total Cells Counted 100
[2019-08-08 18:13] LABS: Microscopic, Urine URINE MICROSCOPIC (MICROSCOPIC)
[2019-08-08 18:17] LABS: Blood, Urine 3+ (Negative); Glucose,Urine (UA) Negative (Negative); Ketones,Urine TRACE (Negative); Leukocyte Esterase,Urine 1+ (Negative); Protein,Urine 2+ (Negative); Specific Gravity, Urine >= 1.030 (1.005-1.030); Urobilinogen,Urine 0.2 EU/dl (0.2)
[2019-08-08 18:20] LABS: Bilirubin,Urine Negative (Negative); Color,Urine Dark Yellow (Yellow)
[2019-08-08 18:21] LABS: Appearance,Urine Turbid (Clear)
[2019-08-08 18:26] LABS: Amorphous Sediment,Urine 2+ /lpf; Bacteria,Urine 3+ /lpf; RBC,Urine 20-50 #/hpf (0-3); WBC,Urine 20-50 #/hpf (0-3)
--- NOTE | 2019-08-08 23:15 | Consult Report ---
*Admission Date: 08/06/19 *Reason for consult:: L hip fracture *History of present illness: 78yo F admitted 08/05/2019 after a fall. She had pain in the left hip/anterior thigh but initial XR was read as negative for fracture. CT scan was not felt to show fracture either, but she's had persistent pain and difficulty with mobilization. Repeat XR was performed today that showed a displaced femoral neck fracture. She has a history of cirrhosis (from BROWN) with ascites and has undergone paracentesis since admission. She has several other medical issues, including chronic kidney disease, coagulopathy, atrial fibrillation, HTN, h/o CABG. She lives alone and has fallen >4 times recently. Pain is reported in the L hip without numbness/tingling in the LLE, no back pain. Review of Systems - Review of Systems Review of systems:: pertinent systems reviewed and negative unless documented below - *Neurologic Denies abnormal speech, Denies dizziness, Denies localized weakness, Denies headache(s), Denies loss of vision, Denies seizure-like activity, Denies dizziness [facility] History I have reviewed the patient's past medical history: Yes Medical History: Reports:: Atrial Fibrillation, Cancer (breast), Coronary Artery Disease, Hyperlipidemia, Hypertension Denies:: Diabetes Mellitus Type 1, Diabetes Mellitus Type 2, MRSA *Have you ever received a pneumonia vaccine?: No *Have you received a flu vaccine this season?: No Other Medical History: Reports: Anemia, Arthritis, Radiation Therapy Laterality Cases: Left: Lumpectomy, Mastectomy Other Surgeries: Yes: CABG, Cancer Surgery (mastectomy), Cardiac Catheterization, Cardiac Surgery, Cholecystectomy, Colonoscopy Amputation: No Fractures: Yes (RIGHT FEMUR WITH PLATE) - *Social History Educational Level: Completed High School Smoking Status: Never smoker Alcohol Intake: never Alcohol Intake Frequency:: other Substance Use Type: denies use *Occupational Status:: retired Housing: house Household Members: none *Travel in the last 8 weeks: None Family Hx:: Cancer, Coronary Artery Disease, Diabetes, Heart Attack, Hyperlipidemia, Hypertension, Stroke Meds Home Medications Medication Instructions Recorded Confirmed Type paroxetine HCl 20 mg tablet 20 mg PO DAILY 10/13/17 08/06/19 History cholecalciferol (vitamin D3) 25 1,000 unit PO DAILY cap 02/18/18 08/05/19 History mcg (1,000 unit) capsule multivitamin 1 tab PO DAILY 02/18/18 08/06/19 History vitamin B complex 1 tab PO DAILY tab 02/18/18 08/05/19 History Budesonide/Formoterol Fumarate 1 puffs INHALATION BID 05/20/19 08/05/19 History [Symbicort 160-4.5 Mcg Inhaler] Colesevelam HCl [Welchol] 625 mg PO BID 05/20/19 08/05/19 History Levothyroxine Sodium 100 mcg PO DAILY 05/20/19 08/05/19 History [Levothyroxine 100mcg (0.1MG) Tab] Spironolactone 100 mg PO TID 05/20/19 08/06/19 History dilTIAZem HCl [Cartia Xt] 300 mg PO DAILY 05/20/19 08/05/19 History Propranolol HCl [Inderal 20mg 10 mg PO Q8H 07/14/19 08/05/19 History tablet] Dicyclomine HCl [Bentyl 10mg 10 mg PO BID 08/06/19 08/06/19 History capsule] Allergies Allergy/AdvReac Type Severity Reaction Status Date / Time Sulfa (Sulfonamide Allergy Mild Verified 08/05/19 22:42 Antibiotics) Exam Vital signs and Labs for Last 24 Hours: Temp Pulse Resp BP Pulse Ox 97.8 F 49 L 18 108/51 L 95 08/08/19 20:00 08/08/19 20:00 08/08/19 20:00 08/08/19 20:00 08/08/19 20:00 Laboratory Results - last 24 hr 08/08/19 07:22: WBC 18.4 H D, RBC 3.41 L, Hgb 10.2 L, Hct 33.2 L, MCV 97.4, MCH 29.9, MCHC 30.7 L, RDW 16.7, Plt Count 224 D, MPV 8.9, Neut % (Auto) 85.2 H, Lymph % (Auto) 7.7 L, [place] % (Auto) 6.4, Eos % (Auto) 0.5, Baso % (Auto) 0.1, Neut # (Auto) 15.7 H, Lymph # (Auto) 1.4, [place] # (Auto) 1.2 H, Eos # (Auto) 0.1, Baso # (Auto) 0.0, Total Counted 100, Neutrophils % (Manual) 86 H, Band Neutrophils % 2.0, Lymphocytes % (Manual) 7 L, Monocytes % (Manual) 5, Platelet Estimate Normal, Poikilocytosis 1+, Anisocytosis 1+, Macrocytosis 1+, Acanthocytes (Spur) 1+ 08/08/19 07:22: Sodium 128 L, Potassium 3.7, Chloride 93 L, Carbon Dioxide 24, Anion Gap 14.7, BUN 24 H D, Creatinine 1.83 H D, Estimated Creat Clear 23, Estimated GFR 27 L, Est GFR ( Amer) 32 L D, Glucose 146 H, Calcium 8.6, Magnesium 1.7 08/08/19 18:00: Urine Color Dark yellow, Urine Appearance Turbid, Urine pH 5.0, Ur Specific [place] >= 1.030, Urine Protein 2+, Urine Glucose (UA) Negative, Urine Ketones Trace, Urine Blood 3+, Urine Nitrate Positive, Urine Bilirubin Negative, Urine Urobilinogen 0.2, Ur Leukocyte Esterase 1+ A, Urine RBC 20-50, Urine WBC 20-50, Ur Squamous Epith Cells 10-20, Amorphous Sediment 2+, Urine Bacteria 3+ I & O for Last 24 hours: Intake & Output 08/06/19 08/07/19 08/08/19 08/09/19 11:59 11:59 11:59 11:59 Intake Total 172 / 172 988 / 988 960 / 960 600 / 600 Output Total 500 / 500 100 / 100 Balance 172 / 172 488 / 488 860 / 860 600 / 600 Weight 134 lb 132 lb 4 oz - Constitutional no acute distress - *Routine HEENT Exam Head: Present: normocephalic Eye: Present: EOMI ENT: Present: mucous membranes moist - *Routine Respiratory Exam Absent: accessory muscle use, wheezes - *Routine Cardiovascular Exam Absent: bradycardia, tachycardia - *Routine Abdominal Exam Present: distended - *Routine Extremities Exam Comments: L hip without gross deformity, no open wounds ROM L hip not tolerated; pain with logroll +DF/PF/EHL LLE SILT distally LLE L calf soft, non-tender palpable pedal pulses LLE - *Routine Skin Exam Present: intact Results - Labs Result Diagrams: 08/08/19 07:22 08/08/19 07:22 Labs: Abnormal lab results 08/08/19 08/08/19 08/08/19 Range/Units 07:22 07:22 18:00 WBC 18.4 H D (4.8-10.8) K/mm3 RBC 3.41 L (4.20-5.40) M/mm3 Hgb 10.2 L (12.2-16.2) g/dL Hct 33.2 L (37.0-47.0) % MCHC 30.7 L (31.8-35.4) g/dL Neut % (Auto) 85.2 H (37.0-80.0) % Lymph % (Auto) 7.7 L (10-50) % Neut # (Auto) 15.7 H (1.8-7.8) K/mm3 [place] # (Auto) 1.2 H (0.1-1.0) K/mm3 Neutrophils % (Manual) 86 H (42-76) % Lymphocytes % (Manual) 7 L (10-50) % Sodium 128 L (136-145) mmol/L Chloride 93 L (98-107) mmol/L BUN 24 H D (7-18) mg/dL Creatinine 1.83 H D (0.55-1.02) mg/dL Estimated GFR 27 L (>60) ml/min Est GFR ( Amer) 32 L D (>60) ML/MIN Glucose 146 H (74-106) mg/dL Ur Leukocyte Esterase 1+ A (Negative) H & H 08/05/19 08/06/19 08/07/19 Range/Units 23:03 05:20 06:45 Hgb 11.3 L 10.7 L 9.8 L (12.2-16.2) g/dL Hct 35.3 L 32.6 L 31.9 L (37.0-47.0) % 08/08/19 Range/Units 07:22 Hgb 10.2 L (12.2-16.2) g/dL Hct 33.2 L (37.0-47.0) % Coagulation 08/05/19 Range/Units 23:03 INR 1.35 H (0.9-1.1) All other labs normal. - Diagnostic results Hip x-ray: image reviewed (XR 08/08/2019 with displaced L femoral neck fx; DHS present R hip) Assessment and Plan (1) Thrombocytopenia Current visit: Yes Status: Acute Category: Medical Code(s): D69.6 - Thrombocytopenia, unspecified (2) Coagulopathy Current visit: Yes Status: Acute Category: Medical Code(s): D68.9 - Coagulation defect, unspecified (3) Ascites Problem details: No concern for SBP as patient has no fever, abdominal pain, altered mental status Current visit: Yes Status: Acute Qualifiers: Ascites type: other type Qualified Code(s): R18.8 - Other ascites Category: Medical Code(s): R18.8 - Other ascites (4) Contusion of hip, left Current visit: Yes Status: Acute Qualifiers: Encounter type: initial encounter Qualified Code(s): S70.02XA - Contusion of left hip, initial encounter Category: Medical Code(s): S70.02XA - Contusion of left hip, initial encounter (5) Fall Current visit: Yes Status: Acute Qualifiers: Encounter type: initial encounter Qualified Code(s): W19.XXXA - Unspecified fall, initial encounter Category: Medical Code(s): W19.XXXA - Unspecified fall, initial encounter (6) Lesion of cerebellum Current visit: Yes Status: Acute Category: Medical Code(s): G93.9 - Disorder of brain, unspecified (7) Falls frequently Current visit: No Status: Acute Category: Medical Code(s): R29.6 - Repeated falls (8) Hypertensive heart disease without heart failure Current visit: No Status: Acute Category: Medical Code(s): I11.9 - Hypertensive heart disease without heart failure (9) Right bundle branch block Current visit: No Status: Acute Category: Medical Code(s): I45.10 - Unspecified right bundle-branch block (10) Cirrhosis Current visit: No Status: Chronic Qualifiers: Hepatic cirrhosis type: other cirrhosis Qualified Code(s): K74.69 - Other cirrhosis of liver Category: Medical Code(s): K74.60 - Unspecified cirrhosis of liver (11) Portal hypertension Problem details: continue Propranolol. Hold diuretics in setting of soft BPs, defer resumption to Hepatology follow-up. Current visit: No Status: Chronic Category: Medical Code(s): K76.6 - Portal hypertension (12) Renal insufficiency Current visit: No Status: Acute Category: Medical Code(s): N28.9 - Disord er of kidney and ureter, unspecified (13) Femoral neck fracture Current visit: Yes Status: Acute Category: Medical Code(s): S72.009A - Fracture of unspecified part of neck of unspecified femur, initial encounter for closed fracture - Assessment and plan all Dx Assessment and Plan for all problems:: 78yo F with L hip femoral neck fracture; history of atrial fibrillation, cirrhosis/BROWN, HTN, coagulopathy, debility with multiple falls -- the patient has several significant medical issues that place her at high risk for surgery, but surgery is the only way she will regain anywhere close the the mobility she once had. I believe bed rest & non-operative treatment is not without risk in her, and my recommendation is for L hip hemiarthroplasty if she can be optimized medically. Specifically, I am concerned about her coagulopathy and she may need FFP at the time of surgery. In addition, her Hgb is 10.2, down since admission, and her platelets are borderline low at 224. WBC has risen to 18.4 and urinalysis is suspicious for UTI; she was started on rocephin today. Creatinine is 1.83 and Na 128. -- echo/cardiology consult planned for tomorrow -- repeat paracentesis may be useful prior to surgery -- will discuss surgery further with the patient tomorrow, after she's been evaluated by cardiology and I've discussed her condition with anesthesia
[2019-08-09 06:53] LABS: Basophils % 0.1 % (0.1-2.0); Eosinophils # 0.1 K/mm3 (0.0-0.4); Eosinophils % 0.5 % (0.1-12.0); Hematocrit 33.3 % (37.0-47.0); Hemoglobin 10.3 g/dL (12.2-16.2); Lymphocytes # 1.7 K/mm3 (0.7-4.5); Lymphocytes % 9.8 % (10-50); Mean Corpuscular HGB Conc 30.8 g/dL (31.8-35.4); Mean Corpuscular Volume 96.9 fl (81-99); Monocytes # 1.5 K/mm3 (0.1-1.0); Monocytes % 8.2 % (1.7-9.3); Neutrophils # 14.4 K/mm3 (1.8-7.8); Neutrophils % 81.4 % (37.0-80.0); Platelet Count 211 K/mm3 (142-424); Red Blood Count 3.44 M/mm3 (4.20-5.40); Red Cell Distribution Width 16.9 % (11.5-17.5); White Blood Count 17.7 K/mm3 (4.8-10.8)
[2019-08-09 07:03] LABS: INR 1.38 (0.9-1.1); Prothrombin Time 14.1 seconds (9.4-11.8)
[2019-08-09 07:07] LABS: Albumin Level 2.7 gm/dL (3.4-5.0); Albumin/Globulin Ratio 0.9 (1.1-1.8); Anion Gap 17.2 mEq/L (5-15); Bilirubin,Total 1.9 mg/dL (0.2-1.0); Calcium 8.5 mg/dL (8.5-10.1); Globulin 2.9 gm/dl (1.3-3.2); Total Protein,Serum 5.6 gm/dL (6.4-8.2)
[2019-08-09 07:11] LABS: Activated Partial Thrombo Time 37.3 seconds (23.6-34.0)
[2019-08-09 07:43] LABS: Eosinophils % 1 % (0-3); Lymphocytes % 6 % (10-50); Monocytes % 8 % (2-9); Neutrophils % 85 % (42-76); Total Cells Counted 100
[2019-08-09 07:44] LABS: Anisocytosis 1+; Macrocytosis 1+; Nucleated Red Blood Cells 4
--- NOTE | 2019-08-09 08:43 | Progress Note ---
Internal Medicine - PN: Subj *Date: 08/09/19 *Time: 08:41 Interval history: Overnight patient has somewhat decompensated, with increasing mental status changes and some confusion. Labs have also decompensated with elevated creatinine markedly above her baseline. She is also not made urine. Exam Vital signs and Labs for Last 24 Hours: Temp Pulse Resp BP Pulse Ox 97.6 F 48 L 17 96/54 L 91 L 08/09/19 04:00 08/09/19 04:00 08/09/19 04:00 08/09/19 04:00 08/09/19 04:00 Laboratory Results - last 24 hr 08/08/19 07:22: Total Counted 100, Neutrophils % (Manual) 86 H, Band Neutrophils % 2.0, Lymphocytes % (Manual) 7 L, Monocytes % (Manual) 5, Platelet Estimate Normal, Poikilocytosis 1+, Anisocytosis 1+, Macrocytosis 1+, Acanthocytes (Spur) 1+ 08/08/19 18:00: Urine Color Dark yellow, Urine Appearance Turbid, Urine pH 5.0, Ur Specific [place] >= 1.030, Urine Protein 2+, Urine Glucose (UA) Negative, Urine Ketones Trace, Urine Blood 3+, Urine Nitrate Positive, Urine Bilirubin Negative, Urine Urobilinogen 0.2, Ur Leukocyte Esterase 1+ A, Urine RBC 20-50, Urine WBC 20-50, Ur Squamous Epith Cells 10-20, Amorphous Sediment 2+, Urine Bacteria 3+ 08/09/19 06:30: WBC 17.7 H, RBC 3.44 L, Hgb 10.3 L, Hct 33.3 L, MCV 96.9, MCH 29.9, MCHC 30.8 L, RDW 16.9, Plt Count 211, MPV 9.0, Neut % (Auto) 81.4 H, Lymph % (Auto) 9.8 L, [place] % (Auto) 8.2, Eos % (Auto) 0.5, Baso % (Auto) 0.1, Neut # (Auto) 14.4 H, Lymph # (Auto) 1.7, [place] # (Auto) 1.5 H, Eos # (Auto) 0.1, Baso # (Auto) 0.0, Total Counted 100, Neutrophils % (Manual) 85 H, Lymphocytes % (Manual) 6 L, Monocytes % (Manual) 8, Eosinophils % (Manual) 1, Nucleated RBCs 4, Platelet Estimate Normal, Anisocytosis 1+, Macrocytosis 1+ 08/09/19 06:30: PT 14.1 H, INR 1.38 H, APTT 37.3 H 08/09/19 06:30: Sodium 126 L, Potassium 4.2, Chloride 92 L, Carbon Dioxide 21, Anion Gap 17.2 H, BUN 30 H, Creatinine 2.73 H D, Estimated Creat Clear 16, Estimated GFR 17 L*, Est GFR ( Amer) 20 L D, Glucose 151 H, Calcium 8.5, Magnesium 1.7, Total Bilirubin 1.9 H, AST 18, ALT 8 L, Alkaline Phosphatase 153 H, Total Protein 5.6 L, Albumin 2.7 L, Globulin 2.9, Albumin/Globulin Ratio 0.9 L I & O for Last 24 hours: Intake & Output 08/06/19 08/07/19 08/08/19 08/09/19 11:59 11:59 11:59 11:59 Intake Total 172 / 172 988 / 988 960 / 960 600 / 600 Output Total 500 / 500 100 / 100 Balance 172 / 172 488 / 488 860 / 860 600 / 600 Weight 134 lb 132 lb 4 oz 133 lb 9 oz Narrative: Patient is pleasant, talkative, and will respond to questions but is not oriented to situation and has lots of rambling/tangential thinking. Denies pain. Appears comfortable. Heart rate regular. Lung archer are clear but diminished air movement bilaterally. Abdomen swollen consistent with her known ascites. Assessment and Plan (1) Thrombocytopenia Current visit: Yes Status: Acute Category: Medical Code(s): D69.6 - Thrombocytopenia, unspecified (2) Coagulopathy Current visit: Yes Status: Acute Category: Medical Code(s): D68.9 - Coagulation defect, unspecified (3) Ascites Problem details: No concern for SBP as patient has no fever, abdominal pain, altered mental status Current visit: Yes Status: Acute Qualifiers: Ascites type: other type Qualified Code(s): R18.8 - Other ascites Category: Medical Code(s): R18.8 - Other ascites (4) Contusion of hip, left Current visit: Yes Status: Acute Qualifiers: Encounter type: initial encounter Qualified Code(s): S70.02XA - Contusion of left hip, initial encounter Category: Medical Code(s): S70.02XA - Contusion of left hip, initial encounter (5) Fall Current visit: Yes Status: Acute Qualifiers: Encounter type: initial encounter Qualified Code(s): W19.XXXA - Unspecified fall, initial encounter Category: Medical Code(s): W19.XXXA - Unspecified fall, initial encounter (6) Lesion of cerebellum Current visit: Yes Status: Acute Category: Medical Code(s): G93.9 - Disorder of brain, unspecified (7) Falls frequently Current visit: No Status: Acute Category: Medical Code(s): R29.6 - Repeated falls (8) Hypertensive heart disease without heart failure Current visit: No Status: Acute Category: Medical Code(s): I11.9 - Hypertensive heart disease without heart failure (9) Right bundle branch block Current visit: No Status: Acute Category: Medical Code(s): I45.10 - Unspecified right bundle-branch block (10) Cirrhosis Current visit: No Status: Chronic Qualifiers: Hepatic cirrhosis type: other cirrhosis Qualified Code(s): K74.69 - Other cirrhosis of liver Category: Medical Code(s): K74.60 - Unspecified cirrhosis of liver (11) Portal hypertension Problem details: continue Propranolol. Hold diuretics in setting of soft BPs, defer resumption to Hepatology follow-up. Current visit: No Status: Chronic Category: Medical Code(s): K76.6 - Portal hypertension (12) Renal insufficiency Current visit: No Status: Acute Category: Medical Code(s): N28.9 - Disorder of kidney and ureter, unspecified (13) Femoral neck fracture Current visit: Yes Status: Acute Category: Medical Code(s): S72.009A - Fracture of unspecified part of neck of unspecified femur, initial encounter for closed fracture - Assessment and plan all Dx Assessment and Plan for all problems:: Patient with worsening creatinine and significant evidence of multiorgan dysfunction. My recommendation is to approach the situation with a palliative care mindset, I discussed this with patient who is okay with hospice but given her confusion we will reach out to her son and make sure this is something he would be in agreement with. I would recommend palliative care, nonoperative intervention for the hip fracture and enrollment in hospice either as an inpatient here or at a facility. I do not believe her prognosis is good for long-term survival. I believe she is having renal dysfunction from a multiplicity of causes, most likely her liver failure.
--- NOTE | 2019-08-09 10:31 | Progress Note ---
Subjective Date: 08/09/19 Time: 09:00 Principal diagnosis: L hip fracture Interval history: The patient has worsened medically overnight, with no urine output and significantly worsened renal function labs. She appears more confused and the medical service is recommending palliative care. PN: Obj Ex Vital signs: Temp Pulse Resp BP Pulse Ox 97.7 F 48 L 18 92/35 L 96 08/09/19 08:00 08/09/19 08:00 08/09/19 08:00 08/09/19 08:00 08/09/19 08:00 - Constitutional no acute distress - Routine Extremities Exam Comments: L hip without gross deformity, no open wounds ROM L hip not tolerated; pain with logroll +DF/PF/EHL LLE SILT distally LLE L calf soft, non-tender palpable pedal pulses LLE Progress Note: A&P (1) Thrombocytopenia Status: Acute Current Visit: Yes (2) Coagulopathy Status: Acute Current Visit: Yes (3) Ascites Problem details: No concern for SBP as patient has no fever, abdominal pain, altered mental status Status: Acute Current Visit: Yes (4) Contusion of hip, left Status: Acute Current Visit: Yes (5) Fall Status: Acute Current Visit: Yes (6) Lesion of cerebellum Status: Acute Current Visit: Yes (7) Falls frequently Status: Acute Current Visit: No (8) Hypertensive heart disease without heart failure Status: Acute Current Visit: No (9) Right bundle branch block Status: Acute Current Visit: No (10) Cirrhosis Status: Chronic Current Visit: No (11) Portal hypertension Problem details: continue Propranolol. Hold diuretics in setting of soft BPs, defer resumption to Hepatology follow-up. Status: Chronic Current Visit: No (12) Renal insufficiency Status: Acute Current Visit: No (13) Femoral neck fracture Status: Acute Current Visit: Yes Assessment and Plan for All Diagnoses:: 78yo F with L hip femoral neck fracture; history of atrial fibrillation, cirrhosis/BROWN, HTN, coagulopathy, debility with multiple falls -- the surgical fix for this injury would be a hemiarthroplasty, but I'm not certain this would be in the patient's best interest at this time. She appears to be approaching the end of her life and surgery may simply hasten this, while creating additional pain. She is at very high medical risk for surgery with very high risk of mortality during/after the procedure. I will defer to the medical team's recommendations as palliative care is initiated. We will refrain from pursuing surgery at this time, but I will be available if my services are needed.
--- NOTE | 2019-08-09 12:47 | Discharge Summary ---
General - General Admission date:: 08/06/19 Discharge date: 08/09/19 HPI HPI: 78-year-old female with multiple comorbidities including Viramontes cirrhosis w/ ascites, atrial fibrillation, hypertension, progressive debility, and history of CABG who presented to the ER after falling yesterday morning. Of note she has fallen multiple times in the past week. She was admitted in May for similar presentation. She reports not following up with her primary care doctor after last admission and has had paracentesis performed twice including once at last admission. Lives by herself. Denies any fever, chest pain, nausea, vomiting. Feels weak and falls often. Came to the ER because of left leg/hip pain. Found to have no acute fractures but does have significant ascites on exam. Labs concerning for KARLA, and liver dysfunction with abnormal INR, elevated bilirubin, thrombocytopenia. Admitted for management of kidney injury and paracentesis. Would benefit from physical therapy assessment as well. Hospital Course Hospital Course: Patient was admitted, radiology was consulted on 4 L were drained from her abdomen/ascitic fluid without complications. Given patient's falls and persistent complains of left-sided leg and hip pain x- rays were repeated showing a left femoral neck fracture. Orthopedics was consulted. In the interim, patient had a significant decline, with worsening mental status, increasing confusion and worsening kidney function with doubling of her creatinine and increased uremia and marginal/minimal urine output over the past 24 hours. Given her worsening hepatorenal picture, we had a long discussion with patient and her son about the utility of repairing the fracture and further aggressive therapy in regards to her liver disease/cirrhosis. My recommendation was that the patient pursue hospice care. She had previously been willing to enter hospice care as an outpatient but at that time decided to pursue orthopedic rehabilitation. However things have certainly changed in her clinical picture. Son and patient were in agreement with this plan. Hospice was consulted. [place] [facility] [place]all[place] care this [place]. Please note that her prognosis is terminal. Please note that palliative medications have been prescribed by me. Objective Vital signs: Temp Pulse Resp BP Pulse Ox 97.7 F 48 L 18 92/35 L 96 08/09/19 08:00 08/09/19 08:00 08/09/19 08:00 08/09/19 08:00 08/09/19 08:00 no acute distress, thin, chronically ill appearing - *Routine HEENT Exam Head: Present: normocephalic Eye: Present: scleral injection, periorbital swelling - *Routine Neck Exam Present: supple - *Routine Respiratory Exam Present: decreased breath sounds, prolonged expiratory phase - *Routine Cardiovascular Exam Present: RRR - *Routine Abdominal Exam Present: distended, organomegaly - *Routine Extremities Exam Present: edema, tenderness (with movement of legs). Absent: clubbing - *Routine Skin Exam Present: intact, jaundice - *Routine Neurological Exam alert, tangential speech, memory loss noted. No focal deficits... Somewhat sluggish c/w encephalopathy Results Labs on day of discharge: Labs from last 24 hours 08/09/19 08/09/19 08/09/19 06:30 06:30 06:30 WBC 17.7 H RBC 3.44 L Hgb 10.3 L Hct 33.3 L MCV 96.9 MCH 29.9 MCHC 30.8 L RDW 16.9 Plt Count 211 MPV 9.0 Neut % (Auto) 81.4 H Lymph % (Auto) 9.8 L [place] % (Auto) 8.2 Eos % (Auto) 0.5 Baso % (Auto) 0.1 Neut # (Auto) 14.4 H Lymph # (Auto) 1.7 [place] # (Auto) 1.5 H Eos # (Auto) 0.1 Baso # (Auto) 0.0 Total Counted 100 Neutrophils % (Manual) 85 H Lymphocytes % (Manual) 6 L Monocytes % (Manual) 8 Eosinophils % (Manual) 1 Nucleated RBCs 4 Platelet Estimate Normal Anisocytosis 1+ Macrocytosis 1+ PT 14.1 H INR 1.38 H APTT 37.3 H Sodium 126 L Potassium 4.2 Chloride 92 L Carbon Dioxide 21 Anion Gap 17.2 H BUN 30 H Creatinine 2.73 H D Estimated Creat Clear 16 Estimated GFR 17 L* Est GFR ( Amer) 20 L D Glucose 151 H Calcium 8.5 Magnesium 1.7 Total Bilirubin 1.9 H AST 18 ALT 8 L Alkaline Phosphatase 153 H Total Protein 5.6 L Albumin 2.7 L Globulin 2.9 Albumin/Globulin Ratio 0.9 L Urine Color Urine Appearance Urine pH Ur Specific [place] Urine Protein Urine Glucose (UA) Urine Ketones Urine Blood Urine Nitrate Urine Bilirubin Urine Urobilinogen Ur Leukocyte Esterase Urine RBC Urine WBC Ur Squamous Epith Cells Amorphous Sediment Urine Bacteria 08/08/19 18:00 WBC RBC Hgb Hct MCV MCH MCHC RDW Plt Count MPV Neut % (Auto) Lymph % (Auto) [place] % (Auto) Eos % (Auto) Baso % (Auto) Neut # (Auto) Lymph # (Auto) [place] # (Auto) Eos # (Auto) Baso # (Auto) Total Counted Neutrophils % (Manual) Lymphocytes % (Manual) Monocytes % (Manual) Eosinophils % (Manual) Nucleated RBCs Platelet Estimate Anisocytosis Macrocytosis PT INR APTT Sodium Potassium Chloride Carbon Dioxide Anion Gap BUN Creatinine Estimated Creat Clear Estimated GFR Est GFR ( Amer) Glucose Calcium Magnesium Total Bilirubin AST ALT Alkaline Phosphatase Total Protein Albumin Globulin Albumin/Globulin Ratio Urine Color Dark yellow Urine Appearance Turbid Urine pH 5.0 Ur Specific [place] >= 1.030 Urine Protein 2+ Urine Glucose (UA) Negative Urine Ketones Trace Urine Blood 3+ Urine Nitrate Positive Urine Bilirubin Negative Urine Urobilinogen 0.2 Ur Leukocyte Esterase 1+ A Urine RBC 20-50 Urine WBC 20-50 Ur Squamous Epith Cells 10-20 Amorphous Sediment 2+ Urine Bacteria 3+ DS: Diagnosis - Discharge Diagnosis (1) Thrombocytopenia Status: Chronic (2) Coagulopathy Status: Chronic (3) Ascites Status: Chronic Problem details: No concern for SBP as patient has no fever, abdominal pain, altered mental status (4) Contusion of hip, left Status: Acute (5) Fall Status: Acute (6) Lesion of cerebellum Status: Acute (7) Falls frequently Status: Acute (8) Hypertensive heart disease without heart failure Status: Acute (9) Right bundle branch block Status: Chronic (10) Cirrhosis Status: Chronic (11) Portal hypertension Status: Chronic Problem details: continue Propranolol. Hold diuretics in setting of soft BPs, defer resumption to Hepatology follow-up. (12) Renal insufficiency Status: Acute (13) Femoral neck fracture Status: Acute (14) Encephalopathy acute Status: Acute Discharge Plan - Patient Discharge Instructions ACTIVITY: Continue current activity DIET: continue same diet Patient Instructions: DI for Ascites, DI for Contusion - Follow up Plan Disposition: Hospice - Medical Facility Home Medications: Home Medications Medication Instructions Recorded Confirmed Type paroxetine HCl 20 mg tablet 20 mg PO DAILY 10/13/17 08/06/19 History cholecalciferol (vitamin D3) 25 1,000 unit PO DAILY cap 02/18/18 08/05/19 History mcg (1,000 unit) capsule multivitamin 1 tab PO DAILY 02/18/18 08/06/19 History vitamin B complex 1 tab PO DAILY tab 02/18/18 08/05/19 History Budesonide/Formoterol Fumarate 1 puffs INHALATION BID 05/20/19 08/05/19 History [Symbicort 160-4.5 Mcg Inhaler] Colesevelam HCl [Welchol] 625 mg PO BID 05/20/19 08/05/19 History Levothyroxine Sodium 100 mcg PO DAILY 05/20/19 08/05/19 History [Levothyroxine 100mcg (0.1MG) Tab] Spironolactone 100 mg PO TID 05/20/19 08/06/19 History dilTIAZem HCl [Cartia Xt] 300 mg PO DAILY 05/20/19 08/05/19 History Propranolol HCl [Inderal 20mg 10 mg PO Q8H 07/14/19 08/05/19 History tablet] Dicyclomine HCl [Bentyl 10mg 10 mg PO BID 08/06/19 08/06/19 History capsule] LORazepam [Ativan 2mg/mL vial] 1 mg SL Q4HP PRN #10 ml 08/09/19 Rx Morphine Sulfate [Roxanol 20mg/mL 10 mg PO Q2HP PRN #30 ml 08/09/19 Rx 1mL oral soln UDC] Prescriptions/Medication Reconciliation: New LORazepam [Ativan 2mg/mL vial] 1 mg SL Q4HP PRN #10 ml PRN Reason: anxiety Morphine Sulfate [Roxanol 20mg/mL 1mL oral soln UDC] 10 mg PO Q2HP PRN #30 ml PRN Reason: pain Continued dilTIAZem HCl [Cartia Xt] 300 mg PO DAILY Budesonide/Formoterol Fumarate [Symbicort 160-4.5 Mcg Inhaler] 1 puffs INHALATION BID Levothyroxine Sodium [Levothyroxine 100mcg (0.1MG) Tab] 100 mcg PO DAILY Propranolol HCl [Inderal 20mg tablet] 10 mg PO Q8H Spironolactone 100 mg PO TID Discontinued paroxetine HCl 20 mg tablet 20 mg PO DAILY multivitamin 1 tab PO DAILY cholecalciferol (vitamin D3) 25 mcg (1,000 unit) capsule 1,000 unit PO DAILY cap vitamin B complex 1 tab PO DAILY tab Colesevelam HCl [Welchol] 625 mg PO BID Dicyclomine HCl [Bentyl 10mg capsule] 10 mg PO BID - Problem Reconciliation Problems Reviewed?: Yes
--- NOTE | 2019-08-10 14:48 | Cardiology Report ---
APPROVED REPORT EXAM: Comprehensive 2D, Doppler, and color-flow Echocardiogram [employer]: Kayli Rodriguez CRT Ht: 5 ft 4 in Wt: 132lbs BSA: 1.64 BP: 108/51 mmHg Indications: HIP FX, LEFT MASTECTOMY WITH LARGE MASS ON CHEST, ASCITES, AFIB 2D Dimensions IVSd 1.40 cm LVEF (Visual) 56.50 % PWd 0.80 cm LVDd 3.80 cm LVDs 2.70 cm LVOT 1.70 cm (M/F) 1.5-2.5 M-Mode Dimensions LA Diam 4.00 cm (1.9-4.0)Ao Diam 3.30 cm (2.0-3.7) AV Cusp 1.80 cm (1.5-2.6) Aortic Valve AoV Peak Alexandr. 127.00 (50-130 cm/s)AI PHT 597.00 ms AO Peak GR. 6.00 mmHg Pulmonary Valve [place] End VMAX 86.90 cm/s PA Accel Time 106.00 (>120 msec) Tricuspid Valve TR P. [id number] cm/sRAP Estimate 10.00 mmHg RVSP 14.00 mmHg Left Ventricle Left atrium is moderately enlarged, left ventricle is normal size, mild concentric left ventricular hypertrophy, visually estimated ejection fraction 55% with no regional wall motion abnormality, endocardial surfaces are poorly visualized, diastolic parameters are inconclusive. Right Ventricle Right atrium is moderately enlarged, right ventricle is mildly dilated with normal contractility. Aortic Valve Aortic valve is thickened and calcified, leaflet continue to display mobility, there is no aortic stenosis, there is mild aortic insufficiency. Mitral Valve Mitral valve leaflets are thickened and calcified, with extensive degenerative changes seen in both anterior and posterior mitral leaflet, there is severe mitral regurgitation. Degree of mitral stenosis cannot be determined with this study. Tricuspid Valve Tricuspid valve leaflets are minimally thickened, there is mild tricuspid regurgitation. Tricuspid regurgitation jet velocity is inadequate for calculation of the right ventricular systolic pressure. Pulmonic Valve Pulmonic valve is poorly visualized. Great Vessels Aortic root is normal size. Pericardium No significant pericardial effusion noted. Conclusion 1. Moderate mitral enlargement, normal left ventricular size, mild concentric left ventricular hypertrophy, visually estimated ejection fraction 55% with no regional wall motion abnormality, endocardial surfaces are poorly visualized, diastolic parameters are inconclusive. 2. Thickened and calcified aortic valve with mild aortic insufficiency. 3. Abnormal mitral valve as described above with severe mitral regurgitation, degree of mitral stenosis cannot be calculated from the study. 4. Mild tricuspid regurgitation. 5. No significant pericardial effusion noted. Electronically signed by : Gene Rodriguez, 08/10/2019 14:47:53
== END 2019-08-09 17:48 | disposition hospice, inpatient (51) | DRG 441 ==
LOC: ER 22:13 → 2ND 22:13 → OBSVTOIN 08-06 03:00 → 2ND 08-06 03:02
PROVIDERS: ADMIT Family Medicine; ATTEND Internal Medicine Adolescent Medicine
DX: Y92.019 Unspecified place in single-family (private) house as the place of occurrence of the external cause; Z88.2 Allergy status to sulfonamides; K75.81 Nonalcoholic steatohepatitis (NASH); W19.XXXA Unspecified fall, initial encounter; Z68.22 Body mass index [BMI] 22.0-22.9, adult; D69.6 Thrombocytopenia, unspecified; S72.012A Unspecified intracapsular fracture of left femur, initial encounter for closed fracture; I25.10 Atherosclerotic heart disease of native coronary artery without angina pectoris; K76.7 Hepatorenal syndrome; E03.9 Hypothyroidism, unspecified; R64 Cachexia; I11.9 Hypertensive heart disease without heart failure; I48.91 Unspecified atrial fibrillation; G93.49 Other encephalopathy; R18.8 Other ascites; Z91.81 History of falling; K76.6 Portal hypertension; D68.9 Coagulation defect, unspecified
CPT/HCPCS: 36415; 49083; 70450; 71010; 71045; 72125; 72170; 72192; 73552; 76642; 80048; 80053; 80076; 81001; 82140; 83615; 83735; 84100; 84484; 85007; 85025; 85610; 85730; 87086; 93005; 93306; 96365; 97110; 97163; 97530; 99283; P9047